=== PATIENT | female | born 1955 | race Caucasian/White ===

== ENCOUNTER 2017-12-07 12:14 | Inpatient (IN) | payer MEDICARE ==
[~2017-12-07] VITALS: Ht 152.4 cm; Wt 47.7 kg
[2017-12-07 12:16] VITALS: BP 135/97; PULSE 112; RESP 12; TEMP 98.2; O2SAT 99
[2017-12-07] MEDS ORDERED: VOLT100T (14:38)
[2017-12-07] MEDS ORDERED: BUTA1CAP PO (14:38)
[2017-12-07] MEDS ORDERED: palgic (14:38)
[2017-12-07] MEDS ORDERED: OXYC-406 PO (14:38)
[2017-12-07] MEDS ORDERED: [UNRECOGNIZED DRUG - OTHER] (14:38)
[2017-12-07] MEDS ORDERED: ROBA500T PO (14:55)
--- NOTE | 2017-12-07 14:55 | PD ---
HPI Chief Complaint: Back/ Neck Pain or Injury Time Seen by Provider: 14:34 Travel History International Travel<30 days: No Contact w/Intl Traveler<30days: No Traveled to known affect area: No History of Present Illness HPI 62-year-old female presents to the emergency Department with complaint of neck pain that is worse on the right than left with worsening 3 months. She has history of neck fusion and back surgery 30 years ago. Denies new or recent injury. Also reports chronic back pain. Says she can't take the pain anymore and came to the ER for help. Pain radiates into both of her arms causing numbness and tingling. Reports decreased range of motion at the shoulder of bilateral arms; so she can't with her arms above her head. Denies IV drug use or cancer. Denies fever. Denies encopresis, incontinence. Reports a tingling sensation in her genital area "sometimes." Reports vomiting secondary to the pain; last vomited yesterday morning. Had an MRI on October 26 and per the patient states that she has 3 herniated discs in her neck. She was told to follow up with neurosurgery which she has not done. Rates pain 10/10. Pain is constant. Describes as shocking. No known relieving factors. Takes OxyContin 40 mg 3 times a day for pain management. Primary care provider is Dr. Tapia. Pain management doctor is Dr. Choe. Allergies to penicillin, tetracycline, mycins. Denies other significant past medical history. Has no other medical complaints. No other modifying factors or associated signs and symptoms. PFSH Past Medical History ?: Not Menopausal: Yes Past Surgical History Cholecystectomy: Yes Social History Alcohol Use: No Tobacco Use: Yes (10 days) Substance Use: No Allergies-Medications (Allergen,Severity, Reaction): Coded Allergies: penicillin G (Unverified Allergy, Intermediate, Hives, 06/07/17) Sulfa (Sulfonamide Antibiotics) (Unverified Allergy, Unknown, 06/07/17) doxycycline (Unverified Allergy, Unknown, 06/07/17) minocycline (Unverified Allergy, Unknown, 06/07/17) tigecycline (Unverified Allergy, Unknown, 06/07/17) Uncoded Allergies: MYCINS (Allergy, Unknown, Rash, 07/30/03) Reported Meds & Prescriptions Reported Meds & Active Scripts Active Robaxin (Methocarbamol) 500 Mg Tab 500 Mg PO QID PRN Reported [ellival] Oxycodone ER (Oxycodone HCl) 40 Mg Tab 40 Mg PO Q8HR [palgic] DAILY Voltaren-Xr (Diclofenac Sodium) 100 Mg Tab.er.24h DAILY Fioricet (Azubobsqtk-Ganxytsecmwgw-Nscuqiij) 50-300-40 Mg Cap 2 Cap PO Q4H PRN Review of Systems Except as stated in HPI: all other systems reviewed are Neg Physical Exam Narrative GENERAL: Thin, female patient, in no acute distress; afebrile, nontoxic-appearing SKIN: Warm and dry. HEAD: Atraumatic. Normocephalic. EYES: Pupils equal and round. No scleral icterus. No injection or drainage. ENT: Mucosa pink and moist. Airway patent. NECK: Trachea midline. No lymphadenopathy. Moving freely. No midline point tenderness on palpation of the cervical spine. Reproducible tenderness to bilateral musculature of the neck; right worse than left. No obvious deformities. CARDIOVASCULAR: Regular rate and rhythm. No murmur appreciated. RESPIRATORY: No accessory muscle use. Clear to auscultation. Breath sounds equal bilaterally. GASTROINTESTINAL: Abdomen soft, non-tender, nondistended. Hepatic and splenic margins not palpable. Bowel sounds are active 4 quadrants. 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 No obvious deformities. No clubbing. No cyanosis. No edema. Ambulatory in the room with steady gait. BACK: No point tenderness on palpation of thoracic spine. No obvious deformities. MUSCULOSKELETAL: Bilateral lower extremities supple and non-tense with 2+ pedal pulses and sensory intact; with full range of motion and 5/5 strength. 2 + DTRs bilaterally. Active dorsiflexion and extension of bilateral feet. [-] straight leg raise is [-] for low back pain. Ambulatory in room with normal gait. Sitting up in bed at 90. No obvious deformities. No clubbing. No cyanosis. No edema. BACK: [-] midline point tenderness on palpation of the lumbar spine. Tenderness on palpation of [-] lumbar paraspinal/iliosacral area. No obvious deformities. NEUROLOGICAL: Awake and alert. Oriented 3. No obvious cranial nerve deficits. Motor grossly within normal limits. Normal speech. Moves all extremities. . Sensory intact. PSYCHIATRIC: Appropriate mood and affect; insight and judgment normal. Data Data Last Documented VS Vital Signs Date Time Temp Pulse Resp B/P (MAP) Pulse Ox O2 Delivery O2 Flow Rate FiO2 12/07/17 12:16 98.2 112 12 135/97 (110) 99 Orders Orders Orphenadrine Inj (Norflex Inj) (12/07/17 15:00) Complete Blood Count With Diff (12/07/17 15:45) Basic Metabolic Panel (Bmp) (12/07/17 15:45) Act Partial Throm Time (Ptt) (12/07/17 15:45) Prothrombin Time / Inr (Pt) (12/07/17 15:45) Morphine Inj (Morphine Inj) (12/07/17 15:45) Ondansetron Inj (Zofran Inj) (12/07/17 15:45) Mri C Spine W&W/O Contrast (12/07/17 ) [facility] Medical Decision Making Medical Screen Exam Complete: Yes Emergency Medical Condition: Yes Medical Record Reviewed: Yes Differential Diagnosis Chronic neck pain, cervical radiculopathy, disc herniation Narrative Course 62-year-old female with chronic neck pain and back pain with complaint of worsening of neck pain over the past 3 months. She had outpatient MRI on October 26 which showed 3 herniated disks, per the patient. She sees pain management and takes OxyContin 40 mg 3 times a day. She was told to follow up with neurosurgery and she has not done so. Denies IV drug use or cancer. Denies encopresis, incontinence, saddle anesthesias. Patient has no midline tenderness on palpation of the cervical spine. Reproducible tenderness to bilateral musculature of the neck. I discussed the patient with my attending physician, Dr. Bullock, and he agrees with the plan of care. Norflex ordered. Robaxin prescribed for home. Instructed patient to follow-up with neurosurgery. Instructed patient to follow up with primary care provider. Patient verbalizes understanding and agreement with treatment plan. Patient is medically cleared and stable for discharge. Discussed reasons to return to the emergency department. Patient agrees with treatment plan. The patients vital signs are stable and the patient is stable for outpatient follow-up and treatment. Patient discharged home, stable and in no acute distress. Diagnosis Primary Impression: Chronic neck pain Referrals: Neurosurgeon Primary Care Physician Patient Instructions: Chronic Neck Pain (DC), General Instructions Additional Instructions: Tylenol or ibuprofen as directed and as needed to reduce pain Robaxin as prescribed for muscle spasms Get adequate rest Ice and/or heating pad to affected area to reduce pain Avoid aggravating activity; increase activity as tolerated Follow-up with primary care provider Follow-up with neurosurgeon Return to the emergency department immediately with worsening symptoms Med/Other Pt SpecificInfo: Prescription(s) given Scripts Methocarbamol (Robaxin) 500 Mg Tab 500 MG PO QID Y for MUSCLE SPASM, #30 TAB 0 Refills Prov: Mariann Nicholson 12/07/17 Disposition: DISCHARGE HOME Condition: Stable Mariann Nicholson Dec 07, 2017 14:55
[2017-12-07] MEDS ORDERED: ORPHENADRINE INJ 60 MG/2 ML AMP IM ONE (15:00)
[2017-12-07] MEDS ORDERED: ONDANSETRON HCL 4 MG/2 ML VIAL IV PUSH ONE (15:45)
[2017-12-07] MEDS ORDERED: MORPHINE SULFATE 2 MG/ML INJ IV PUSH ONE (15:45)
--- NOTE | 2017-12-07 15:45 | PD.CONS ---
(Alex France MD) HPI Consult Requested By Primary Care Physician Non-Staff (Alex France MD) Service Neurosurgery Consult Requested By ED Physician Reason for Consult cervical myelopathy History of Present Illness Ms. Rios is a 62 year old female who presents to [place] ED for intractable cervical pain and extremity weakness. The patient reports she has had progressive neck pain for the past few months. She says she underwent an MRI scan of her cervical spine outpatient but she does not have results with her. She reports however for the past few days she has had severe worsening weakness of her arms and legs. This has caused difficulty mobilizing as well as performing ADLs. She reports of constipation but denies urinary or bowel incontinence. She complains pain radiating throughout her arms. She complains of headaches. She has numbness all over her arms and legs. She also has had weight loss. She denies fevers or chills. A neurosurgical evaluation was requested. (Sapphire Sinha) Review of Systems Constitutional: COMPLAINS OF: Weight loss, DENIES: Fever, Chills Eyes: DENIES: Diplopia, Vision loss, Double Vision Ears, nose, mouth, throat: DENIES: Tinnitus, Hearing loss Respiratory: DENIES: Apneas, Wheezing, Hemoptysis, Shortness of breath Cardiovascular: DENIES: Chest pain, Palpitations, Syncope Gastrointestinal: COMPLAINS OF: Constipation, DENIES: Abdominal pain, Nausea, Vomiting Genitourinary: DENIES: Urinary incontinence Musculoskeletal: COMPLAINS OF: Neck pain Neurologic: COMPLAINS OF: Abnormal gait, Headache, Localized weakness, Paresthesias, Poor Balance, DENIES: Seizures Psychiatric: DENIES: Hallucinations (Sapphire Sinha) Past Family Social History Allergies: Coded Allergies: penicillin G (Unverified Allergy, Intermediate, Hives, 06/07/17) Sulfa (Sulfonamide Antibiotics) (Unverified Allergy, Unknown, 06/07/17) doxycycline (Unverified Allergy, Unknown, 06/07/17) minocycline (Unverified Allergy, Unknown, 06/07/17) tigecycline (Unverified Allergy, Unknown, 06/07/17) Uncoded Allergies: MYCINS (Allergy, Unknown, Rash, 07/30/03) Past Medical History headaches chronic pain Past Surgical History remote lumbar fusion anterior cervical fusion Reported Medications reviewed in EMR Active Ordered Medications Current Medications Medications (Trade) Dose Ordered Sig/Suzie Route PRN Reason Start Time Stop Time Status Last Admin Dose Admin Hydromorphone HCl (Dilaudid Pf Inj) 1 mg Q4H PRN IV PUSH pain 6-10 12/07/17 16:15 UNV Lorazepam (Ativan Inj) 1 mg ONCE ONCE IV PUSH 12/07/17 16:15 12/07/17 16:16 UNV Family History reviewed, noncontributory to her current problem Social History positive for tobacco use, she denies illicit drug or etoh abuse. she lives alone, her passed a year ago (Sapphire Sinha) Physical Exam Vital Signs Vital Signs Date Time Temp Pulse Resp B/P (MAP) Pulse Ox O2 Delivery O2 Flow Rate FiO2 12/07/17 12:16 98.2 112 12 135/97 (110) 99 Physical Exam Ms. Rios is alert, awake and oriented to time, place and person. Speech is fluent. Higher cognitive functions are normal. Cranial nerve examination demonstrates the pupils to be equal, round, and reactive to light. Extra-ocular movements are intact. Facial motor and sensory function are normal and symmetrical. Gross hearing is intact, bilaterally. The uvula is midline and elevates symmetrically with the soft palate. Sternocleidomastoid and trapezius muscles have normal and symmetrical strength. Other cranial nerves are intact. Cervical spine moderate to severe decrease in range of motion in anterior flexion, extension, lateral bending, and rotation with pain. Muscle testing reveals increase tone. Muscle strength is 3 to 4-/5 deltoid, biceps, triceps, brachioradialis, wrist extension and screen roller. In the lower extremities, strength is 3 to 4-/5 in both iliopsoas, quadriceps, hamstrings, 2/ 5 plantar flexion, dorsiflexion, 0/5 extensor hallicus longus. Sensory examination is decreased throughout her upper and lower extremities. Deep tendon reflexes are 1+ and symmetrical in the biceps, triceps, and brachioradialis, bilaterally, in the upper extremities. In the lower extremities , the patellar are 3+ brisk, and Achilles are 1+, bilaterally. Plantars silent bilaterally. Hoffmanns sign is positive bilaterally. Cerebellar examination is limited due to her upper extremity weakness, grossly intact to [id number] test Lungs: clear to auscultate bilaterally Heart: regular rate, rhythm Skin: warm and dry (Alex France MD) Physical Exam Ms. Rios is alert, awake and oriented to time, place and person. Speech is fluent. Higher cognitive functions are normal. Cranial nerve examination demonstrates the pupils to be equal, round, and reactive to light. Extra-ocular movements are intact. Facial motor and sensory function are normal and symmetrical. Gross hearing is intact, bilaterally. The uvula is midline and elevates symmetrically with the soft palate. Sternocleidomastoid and trapezius muscles have normal and symmetrical strength. Other cranial nerves are intact. Cervical spine moderate to severe decrease in range of motion in anterior flexion, extension, lateral bending, and rotation with pain. Muscle testing reveals increase tone. Muscle strength is 3 to 4-/5 deltoid, biceps, triceps, brachioradialis, wrist extension and screen roller. In the lower extremities, strength is 3 to 4-/5 in both iliopsoas, quadriceps, hamstrings, 2/ 5 plantar flexion, dorsiflexion, 0/5 extensor hallicus longus. Sensory examination is decreased throughout her upper and lower extremities. Deep tendon reflexes are 1+ and symmetrical in the biceps, triceps, and brachioradialis, bilaterally, in the upper extremities. In the lower extremities , the patellar are 3+ brisk, and Achilles are 1+, bilaterally. Plantars silent bilaterally. Hoffmanns sign is positive bilaterally. Cerebellar examination is limited due to her upper extremity weakness, grossly intact to [id number] test Lungs: clear to auscultate bilaterally Heart: regular rate, rhythm Skin: warm and dry (Sapphire Sinha) Attending Statement Neuro. She has clinical signs consistet with Upper motor neuron findings. Minna pect cervical myelopathy. I have requested her outpatient MRI. Recommend MRI cervical spine ROCIO. I will defer further recommendations to completion of her MRI Pulmonary aggressive pulmonary toilette, nasotracheal suction, and breathing treatments with nebulizers. Nutrition. Oral diet Renal. monitor closely urine output, BUN and creatinine Endocrine. Monitor serial Acu checks and SSI as needed in detail ID monitor for signs of infection Protonix for stress ulcer prophylaxis Skinny hose and SCD's for DVT prophylaxis \ The exam, history, and the medical decision-making described in the above note were completed with the assistance of the mid-level provider. I reviewed and agree with the findings presented. I attest that I had a [id number] encounter with the patient on the same day, and personally performed and documented my assessment and findings in the medical record. (Alex France MD) Alex France MD Dec 07, 2017 15:45 Sapphire Sinha Dec 07, 2017 16:22
--- NOTE | 2017-12-07 15:53 | PD ---
Physical Exam Date Seen by Provider: Dec 07, 2017 Time Seen by Provider: 15:50 Narrative The patient is a 62-year-old female was initially evaluated by the mid-level provider. Please refer to initial history, physical, diagnostic evaluation, and treatment modality plan. Data Data Last Documented VS Vital Signs Date Time Temp Pulse Resp B/P (MAP) Pulse Ox O2 Delivery O2 Flow Rate FiO2 12/07/17 16:14 78 20 100 Room Air 12/07/17 12:16 98.2 Orders Orders Orphenadrine Inj (Norflex Inj) (12/07/17 15:00) Complete Blood Count With Diff (12/07/17 15:45) Basic Metabolic Panel (Bmp) (12/07/17 15:45) Act Partial Throm Time (Ptt) (12/07/17 15:45) Prothrombin Time / Inr (Pt) (12/07/17 15:45) Morphine Inj (Morphine Inj) (12/07/17 15:45) Ondansetron Inj (Zofran Inj) (12/07/17 15:45) Mri C Spine W&W/O Contrast (12/07/17 ) Hydromorphone Pf Inj (Dilaudid Pf Inj) (12/07/17 16:15) Lorazepam Inj (Ativan Inj) (12/07/17 16:15) Consult Neurosurgery (12/07/17 ) Consult Neurology (12/07/17 ) Admit Order (Ed Use Only) (12/07/17 16:45) Labs Laboratory Tests Test 12/07/17 15:54 White Blood Count 12.1 TH/MM3 Red Blood Count 3.96 MIL/MM3 Hemoglobin 13.6 GM/DL Hematocrit 37.3 % Mean Corpuscular Volume 94.4 FL Mean Corpuscular Hemoglobin 34.3 PG Mean Corpuscular Hemoglobin Concent 36.3 % Red Cell Distribution Width 14.4 % Platelet Count 379 TH/MM3 Mean Platelet Volume 6.0 FL Neutrophils (%) (Auto) 58.9 % Lymphocytes (%) (Auto) 34.4 % Monocytes (%) (Auto) 4.5 % Eosinophils (%) (Auto) 1.7 % Basophils (%) (Auto) 0.5 % Neutrophils # (Auto) 7.1 TH/MM3 Lymphocytes # (Auto) 4.2 TH/MM3 Monocytes # (Auto) 0.5 TH/MM3 Eosinophils # (Auto) 0.2 TH/MM3 Basophils # (Auto) 0.1 TH/MM3 CBC Comment AUTO DIFF Prothrombin Time 9.4 SEC Prothromb Time International Ratio 0.9 RATIO Activated Partial Thromboplast Time 23.9 SEC Blood Urea Nitrogen 7 MG/DL Creatinine 0.51 MG/DL Random Glucose 86 MG/DL Calcium Level 8.6 MG/DL Sodium Level 134 MEQ/L Potassium Level 3.9 MEQ/L Chloride Level 104 MEQ/L Carbon Dioxide Level 22.6 MEQ/L Anion Gap 7 MEQ/L Estimat Glomerular Filtration Rate 121 ML/MIN [facility] Medical Record Reviewed: Yes Supervised Visit with MICA: Yes Interpretation(s) Laboratory Tests Test 12/07/17 15:54 White Blood Count 12.1 TH/MM3 Red Blood Count 3.96 MIL/MM3 Hemoglobin 13.6 GM/DL Hematocrit 37.3 % Mean Corpuscular Volume 94.4 FL Mean Corpuscular Hemoglobin 34.3 PG Mean Corpuscular Hemoglobin Concent 36.3 % Red Cell Distribution Width 14.4 % Platelet Count 379 TH/MM3 Mean Platelet Volume 6.0 FL Neutrophils (%) (Auto) 58.9 % Lymphocytes (%) (Auto) 34.4 % Monocytes (%) (Auto) 4.5 % Eosinophils (%) (Auto) 1.7 % Basophils (%) (Auto) 0.5 % Neutrophils # (Auto) 7.1 TH/MM3 Lymphocytes # (Auto) 4.2 TH/MM3 Monocytes # (Auto) 0.5 TH/MM3 Eosinophils # (Auto) 0.2 TH/MM3 Basophils # (Auto) 0.1 TH/MM3 CBC Comment AUTO DIFF Prothrombin Time 9.4 SEC Prothromb Time International Ratio 0.9 RATIO Activated Partial Thromboplast Time 23.9 SEC Blood Urea Nitrogen 7 MG/DL Creatinine 0.51 MG/DL Random Glucose 86 MG/DL Calcium Level 8.6 MG/DL Sodium Level 134 MEQ/L Potassium Level 3.9 MEQ/L Chloride Level 104 MEQ/L Carbon Dioxide Level 22.6 MEQ/L Anion Gap 7 MEQ/L Estimat Glomerular Filtration Rate 121 ML/MIN Differential Diagnosis Differential diagnosis includes syringomyelia, cervical cord compression, cervical myelopathy, atypical MS, metastatic cancer, chronic pain. Narrative Course I, Dr. Bullock, have reviewed the advance practice practitioner's documentation and am in agreement, met with the patient face to face, made the diagnosis, and the medical decision making was done by me. *My assessment and Findings: 62-year-old female with 3 month history of neck pain. The patient's apparently over one year ago, she then developed neck pain 3 months ago. She had an outpatient MRI performed in [place] one month ago which apparently revealed 3 herniated disc. The patient was referred to a neurosurgeon, however, has not followed up with a neurosurgeon. The patient now notes 3 days of increasing weakness with inability to raise arms above her head. She now notes difficulty dressing herself and doing her activities of daily living. She notes progressing weakness of the upper extremities as well as numbness of the upper extremities. She also complains of difficulty ambulates secondary to bilateral lower extremity weakness. She does have a previous history of back surgery, however, states this is acute. She denies any acute urinary incontinence. Symptoms are moderate. Physical examination reveals limited range of motion of the upper extremity is, she is unable to abduct her arms completely to 90 or extend them to 90, she is unable to raise her arms above her legs. 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 Positive right radial pulses. Lower extremities revealed diminished strength with flexion of the hips and extension of the knees , brisk DTRs bilateral 3+ and symmetric. Triceps reflexes bilaterally were 2+. No clonus noted. I discussed the patient on-call neurosurgeon, Dr. France, at 3:45 PM who recommends MRI with and without contrast and admission to the medical service. Therefore MRI of the cervical spine with and without contrast was obtained. The patient was evaluated by the neurosurgeon in the emergency department, recommends admission to the medical service, MRIs are pending for probable cervical myelopathy. Physician Communication Physician Communication The on-call medical service was paged for admission. I discussed the patient with Dr. Lee who agrees with admission. Diagnosis Primary Impression: Cervical myelopathy Admitting Information Admitting Physician Requests: Admit Referrals: Neurosurgeon Primary Care Physician Departure Forms: Tests/Procedures Scripts Methocarbamol (Robaxin) 500 Mg Tab 500 MG PO QID Y for MUSCLE SPASM, #30 TAB 0 Refills Prov: Mariann Nicholson PLATE MILL MILL HAND 12/07/17 Condition: Stable Uri Bullock MD Dec 07, 2017 15:53
[2017-12-07 16:13] LABS: AUTOMATED NEUTROPHIL # 7.1 TH/MM3 (1.8-7.7); BASOPHIL # 0.1 TH/MM3 (0-0.2); BASOPHIL % 0.5 % (0.0-2.0); EOSINOPHIL # 0.2 TH/MM3 (0-0.4); EOSINOPHIL % 1.7 % (0.0-4.0); HEMATOCRIT 37.3 % (35.0-46.0); HEMOGLOBIN 13.6 GM/DL (11.6-15.3); LYMPH % 34.4 % (9.0-44.0); LYMPHOCYTE # 4.2 TH/MM3 (1.0-4.8); MEAN CELL VOLUME 94.4 FL (80.0-100.0); MEAN CORPUSCULAR HEMOGLOBIN 34.3 PG (27.0-34.0); MONO % 4.5 % (0.0-8.0); MONOCYTE # 0.5 TH/MM3 (0-0.9); NEUT % 58.9 % (16.0-70.0); PLATELET COUNT 379 TH/MM3 (150-450); RED BLOOD COUNT 3.96 MIL/MM3 (4.00-5.30); RED CELL DISTRIBUTION WIDTH 14.4 % (11.6-17.2); WHITE BLOOD COUNT 12.1 TH/MM3 (4.0-11.0)
[2017-12-07 16:14] VITALS: PULSE 78; RESP 20; O2SAT 100
[2017-12-07 16:15] LABS: MEAN CORPUSCULAR HGB CONC 36.3 % (32.0-36.0)
[2017-12-07] MEDS ORDERED: LORazepam 2 MG/ML VIAL IV PUSH ONE (16:15)
[2017-12-07] MEDS ORDERED: HYDROmorphone HCL PF 2 MG/ML VIAL IV PUSH PRN (16:15)
[2017-12-07 16:23] LABS: INTERNATIONAL NORMALIZED RATIO 0.9 RATIO; PROTHROMBIN TIME - PATIENT 9.4 SEC (9.8-11.6)
[2017-12-07 16:36] LABS: BICARBONATE 22.6 MEQ/L (21.0-32.0); CALCIUM 8.6 MG/DL (8.5-10.1); CREATININE 0.51 MG/DL (0.50-1.00)
[2017-12-07] MEDS ORDERED: GADODIAMIDE PF 287 MG/ML 10 ML VIAL (for RAD MRI) IVCONTRAST ONE (17:39)
--- NOTE | 2017-12-07 18:11 | RADRPT ---
EXAM DATE/TIME: 12/07/2017 17:17 [facility] COMPARISON: No previous studies available for comparison. INDICATIONS : Bilateral upper extremity weakness. CONTRAST: 9 cc Omniscan (gadodiamide) IV MEDICAL HISTORY : None. SURGICAL HISTORY : Fusion, lumbar. Discectomy, cervical. ENCOUNTER: Initial ACUITY: 3 day PAIN SCORE: 5/10 LOCATION: neck. TECHNIQUE: Multiplanar, multisequence MRI examination of the cervical spine was performed. FINDINGS: There is evidence for prior fusion at C5-C6 appears complete. There is marrow edema with slight enhan cement on the postcontrast portion involving C3 and C4 vertebrae most likely related to significant d egenerative change. C2-C3: There is no evidence for any significant compromise to the thecal sac, or the exiting nerve roots. N o appreciable thecal sac stenosis is seen. The neural foramina and lateral recess appear patent bila terally. and C3-C4: Moderate overall thecal sac stenosis is seen due to bulging disc and hypertrophic changes. There is s light neural foramina compromise on the left due to asymmetrical bulging disc and hypertrophic change s. Moderate degenerative changes are seen within the disc space and facets. C4-C5: Moderate overall thecal sac stenosis is seen due to bulging disc and hypertrophic changes. Moderate d egenerative changes are seen within the disc space and facets. There is moderate neural foramina comp romise bilaterally due to bulging disc and hypertrophic changes. There is slight edema within the spi nal cord from C3 to mid body of C4 may be related to ischemic changes from stenosis. C5-C6: The thecal sac has a normal configuration. There is no evidence of disc herniation or spinal canal stenosis. The neural foramina are patent bilaterally. C6-C7: Moderate overall thecal sac stenosis is seen due to bulging disc and hypertrophic changes. There is s ignificant neural foramina compromise bilaterally due to bulging disc and hypertrophic changes.Signif icant degenerative changes are seen within the disc space and facets. C7-T1: The thecal sac has a normal configuration. There is no evidence of disc herniation or spinal canal stenosis. The neural foramina are patent bilaterally. CONCLUSION: Moderate to severe thecal sac stenosis C3-4, C4-5 and C6-7 in addition to neural foramina compromise left C3-C4, bilateral C4-5 bilateral C6-7. There is abnormal signal within the spinal cord AP centere d at C3-4 level may represent ischemic changes related to significant stenosis. Rosanna Ricci MD on December 07, 2017 at 18:01 Board Certified Radiologist. This report was verified electronically.
[2017-12-07 18:20] VITALS: BP 120/60; PULSE 74; RESP 20; O2SAT 100
--- NOTE | 2017-12-07 18:48 | PD ---
Data Data Last Documented VS Vital Signs Date Time Temp Pulse Resp B/P (MAP) Pulse Ox O2 Delivery O2 Flow Rate FiO2 12/07/17 16:14 78 20 100 Room Air 12/07/17 12:16 98.2 Orders Orders Orphenadrine Inj (Norflex Inj) (12/07/17 15:00) Complete Blood Count With Diff (12/07/17 15:45) Basic Metabolic Panel (Bmp) (12/07/17 15:45) Act Partial Throm Time (Ptt) (12/07/17 15:45) Prothrombin Time / Inr (Pt) (12/07/17 15:45) Morphine Inj (Morphine Inj) (12/07/17 15:45) Ondansetron Inj (Zofran Inj) (12/07/17 15:45) Mri C Spine W&W/O Contrast (12/07/17 ) Hydromorphone Pf Inj (Dilaudid Pf Inj) (12/07/17 16:15) Lorazepam Inj (Ativan Inj) (12/07/17 16:15) Consult Neurosurgery (12/07/17 ) Consult Neurology (12/07/17 ) Admit Order (Ed Use Only) (12/07/17 16:45) Labs Laboratory Tests Test 12/07/17 15:54 White Blood Count 12.1 TH/MM3 Red Blood Count 3.96 MIL/MM3 Hemoglobin 13.6 GM/DL Hematocrit 37.3 % Mean Corpuscular Volume 94.4 FL Mean Corpuscular Hemoglobin 34.3 PG Mean Corpuscular Hemoglobin Concent 36.3 % Red Cell Distribution Width 14.4 % Platelet Count 379 TH/MM3 Mean Platelet Volume 6.0 FL Neutrophils (%) (Auto) 58.9 % Lymphocytes (%) (Auto) 34.4 % Monocytes (%) (Auto) 4.5 % Eosinophils (%) (Auto) 1.7 % Basophils (%) (Auto) 0.5 % Neutrophils # (Auto) 7.1 TH/MM3 Lymphocytes # (Auto) 4.2 TH/MM3 Monocytes # (Auto) 0.5 TH/MM3 Eosinophils # (Auto) 0.2 TH/MM3 Basophils # (Auto) 0.1 TH/MM3 CBC Comment AUTO DIFF Differential Comment AUTO DIFF CONFIRMED Prothrombin Time 9.4 SEC Prothromb Time International Ratio 0.9 RATIO Activated Partial Thromboplast Time 23.9 SEC Blood Urea Nitrogen 7 MG/DL Creatinine 0.51 MG/DL Random Glucose 86 MG/DL Calcium Level 8.6 MG/DL Sodium Level 134 MEQ/L Potassium Level 3.9 MEQ/L Chloride Level 104 MEQ/L Carbon Dioxide Level 22.6 MEQ/L Anion Gap 7 MEQ/L Estimat Glomerular Filtration Rate 121 ML/MIN MDM Supervised Visit with MICA: No Narrative Course At 615 I reviewed the patient's MRI results per Dr. Bullock's request that she is still in the emergency department: Cervical Spine MRI 12/07/17 0000 Signed Impressions: Service Date/Time: Thursday, December 07, 2017 17:17 - CONCLUSION: Moderate to severe thecal sac stenosis C3-4, C4-5 and C6-7 in addition to neural foramina compromise left C3-C4, bilateral C4-5 bilateral C6-7. There is abnormal signal within the spinal cord AP centered at C3-4 level may represent ischemic changes related to significant stenosis. Rosanna Ricci MD Immediately page Dr. France who is already seen and examined the patient, he returned a page 6:45 stating that these changes do not represent an emergent indication for surgery as her symptoms are chronic. Diagnosis Primary Impression: Cervical myelopathy Referrals: Neurosurgeon Primary Care Physician Departure Forms: Tests/Procedures Additional Instruction: Tylenol or ibuprofen as directed and as needed to reduce pain Robaxin as prescribed for muscle spasms Get adequate rest Ice and/or heating pad to affected area to reduce pain Avoid aggravating activity; increase activity as tolerated Follow-up with primary care provider Follow-up with neurosurgeon Return to the emergency department immediately with worsening symptoms Scripts Methocarbamol (Robaxin) 500 Mg Tab 500 MG PO QID Y for MUSCLE SPASM, #30 TAB 0 Refills Prov: Mariann Nicholson GLASS GRINDER 12/07/17 Condition: Stable Rafael Levy MD Dec 07, 2017 18:47
--- NOTE | 2017-12-07 18:53 | HHI.HP ---
[facility] Unknown Admission Diagnosis cervical myelopathy with upper motor neuron signs Diagnoses: Chief Complaint: Neck pain, severe weakness bilateral arms Travel History International Travel<30 Days: No Contact w/Intl Traveler <30 Da: No Traveled to Known Affected Are: No History of Present Illness Written by Vivi Maciel, acting as scribe for Dr. Lee on 12/07/17 at 18:39. Patient is a 62-year-old female with primary medical history of neck fusion, lower back fusion with rods, chronic pain who came in the hospital for increasing neck and back pain. Patient reports that she has been having an ongoing cervical pain that extends throughout bilateral upper extremity with weakness for the past several days. She came into the hospital because he was worsening in pain and she is unable to hold any utensils, hairbrush or even to brush her teeth without crying in pain. Reports she's been dropping stuff on her foot she is unable to hold it and has broken to toes.. Complaints of numbness and tingling, sharp achy pain, rated 8/10, radiating to shoulders and head aggravated with movement increasing pain 10 over 10, unrelieved by her current regimen of medication. She also complains of difficulty with ambulation. Otherwise, denies chest pain, palpitations, fevers, chills, nausea , vomiting, diarrhea, constipation. Denies any shortness of breath or dyspnea. Review of Systems Except as stated in HPI: all other systems reviewed are Neg Past Family Social History Past Medical History Chronic pain Leukoma Cataracts Past Surgical History Cholecystectomy Lumbar fusion with plates and rods done in [facility] in 1987 Neck fusion also done [facility] in 1987 Reported Medications Reported Meds & Active Scripts Active Robaxin (Methocarbamol) 500 Mg Tab 500 Mg PO QID PRN Reported [ellival] Oxycodone ER (Oxycodone HCl) 40 Mg Tab 40 Mg PO Q8HR [palgic] DAILY Voltaren-Xr (Diclofenac Sodium) 100 Mg Tab.er.24h DAILY Fioricet (Ypdtczyfef-Kyyolafnjwwha-Fivwdqgr) 50-300-40 Mg Cap 2 Cap PO Q4H PRN Allergies: Coded Allergies: penicillin G (Unverified Allergy, Intermediate, Hives, 06/07/17) Sulfa (Sulfonamide Antibiotics) (Unverified Allergy, Unknown, 06/07/17) doxycycline (Unverified Allergy, Unknown, 06/07/17) minocycline (Unverified Allergy, Unknown, 06/07/17) tigecycline (Unverified Allergy, Unknown, 06/07/17) Uncoded Allergies: MYCINS (Allergy, Unknown, Rash, 07/30/03) Active Ordered Medications Current Medications Medications (Trade) Dose Ordered Sig/Suzie Route Start Time Stop Time Status Last Admin (Dilaudid Pf Inj) 1 mg Q4H PRN IV PUSH 12/07/17 16:15 12/07/17 17:09 Family History Mother had dementia, heart disease Father had throat cancer Social History Denies alcohol use Current tobacco use 10 cigarettes per day 30 years Denies drug use Physical Exam Vital Signs Vital Signs Date Time Temp Pulse Resp B/P (MAP) Pulse Ox O2 Delivery O2 Flow Rate FiO2 12/07/17 18:20 74 20 120/60 (80) 100 12/07/17 16:14 78 20 100 Room Air 12/07/17 12:16 98.2 112 12 135/97 (110) 99 Physical Exam GENERAL: This is athin appearing, well-developed patient, in no apparent distress. SKIN: Cool and dry. HEAD: Normocephalic. EYES: Pupils equal round and reactive. Extraocular motions intact. No scleral icterus. No injection or drainage. ENT: Nose without bleeding. Throat without erythema. Uvula midline. Airway patent. NECK: Trachea midline. CARDIOVASCULAR: Regular rate and rhythm without murmurs, gallops, or rubs. RESPIRATORY: Clear to auscultation. Breath sounds equal bilaterally. No wheezes , rales, or rhonchi. GASTROINTESTINAL: Abdomen soft, non-tender, nondistended. Bowel sounds hypoactive. MUSCULOSKELETAL: Extremities without clubbing, cyanosis, or edema. NEUROLOGICAL: Awake and alert. Cranial nerves II through XII intact. BUE limited ROM, difficult the with abduction. RUE weaker than left. RLE weaker plantar and dorsiflexion than left. Normal speech. Laboratory Laboratory Tests Test 12/07/17 15:54 White Blood Count 12.1 Red Blood Count 3.96 Hemoglobin 13.6 Hematocrit 37.3 Mean Corpuscular Volume 94.4 Mean Corpuscular Hemoglobin 34.3 Mean Corpuscular Hemoglobin Concent 36.3 Red Cell Distribution Width 14.4 Platelet Count 379 Mean Platelet Volume 6.0 Neutrophils (%) (Auto) 58.9 Lymphocytes (%) (Auto) 34.4 Monocytes (%) (Auto) 4.5 Eosinophils (%) (Auto) 1.7 Basophils (%) (Auto) 0.5 Neutrophils # (Auto) 7.1 Lymphocytes # (Auto) 4.2 Monocytes # (Auto) 0.5 Eosinophils # (Auto) 0.2 Basophils # (Auto) 0.1 CBC Comment AUTO DIFF Differential Comment AUTO DIFF CONFIRMED Prothrombin Time 9.4 Prothromb Time International Ratio 0.9 Activated Partial Thromboplast Time 23.9 Blood Urea Nitrogen 7 Creatinine 0.51 Random Glucose 86 Calcium Level 8.6 Sodium Level 134 Potassium Level 3.9 Chloride Level 104 Carbon Dioxide Level 22.6 Anion Gap 7 Estimat Glomerular Filtration Rate 121 Result Diagram: 12/07/17 1554 12/07/17 1554 Imaging Last Impressions Cervical Spine MRI 12/07/17 0000 Signed Impressions: Service Date/Time: Thursday, December 07, 2017 17:17 - CONCLUSION: Moderate to severe thecal sac stenosis C3-4, C4-5 and C6-7 in addition to neural foramina compromise left C3-C4, bilateral C4-5 bilateral C6-7. There is abnormal signal within the spinal cord AP centered at C3-4 level may represent ischemic changes related to significant stenosis. Rosanna Ricci MD Caprini VTE Risk Assessment Caprini VTE Risk Assessment: Mod/High Risk (score >= 2) Caprini Risk Assessment Model Point Value = 1 Point Value = 2 Point Value = 3 Point Value = 5 Age 41-60 Minor surgery BMI > 25 kg/m2 Swollen legs Varicose veins or History of unexplained or recurrent spontaneous Oral contraceptives or hormone replacement Sepsis (< 1 month) Serious lung disease, including pneumonia (< 1 month) Abnormal pulmonary function Acute myocardial infarction Congestive heart failure (< 1 month) History of inflammatory bowel disease Medical patient at bed rest Age 61-74 Arthroscopic surgery Major open surgery (> 45 min) Laparoscopic surgery (> 45 min) Malignancy Confined to bed (> 72 hours) Immobilizing plaster cast Central venous access Age >= 75 History of VTE Family history of VTE Factor V Leiden Prothrombin [id number] Lupus anticoagulant Anticardiolipin antibodies Elevated serum homocysteine Heparin-induced thrombocytopenia Other congenital or acquired thrombophilia Stroke (< 1 month) Elective arthroplasty Hip, pelvis, or leg fracture Acute spinal cord injury (< 1 month) Prophylaxis Regimen Total Risk Factor Score Risk Level Prophylaxis Regimen 0-1 Low Early ambulation 2 Moderate Order ONE of the following: *Sequential Compression Device (SCD) *Heparin 5000 units SQ BID 3-4 Higher Order ONE of the following medications: *Heparin 5000 units SQ TID *Enoxaparin/Lovenox 40 mg SQ daily (WT < 150 kg, CrCl > 30 mL/min) *Enoxaparin/Lovenox 30 mg SQ daily (WT < 150 kg, CrCl > 10-29 mL/min) *Enoxaparin/Lovenox 30 mg SQ BID (WT < 150 kg, CrCl > 30 mL/min) AND/OR *Sequential Compression Device (SCD) 5 or more Highest Order ONE of the following medications: *Heparin 5000 units SQ TID (Preferred with Epidurals) *Enoxaparin/Lovenox 40 mg SQ daily (WT < 150 kg, CrCl > 30 mL/min) *Enoxaparin/Lovenox 30 mg SQ daily (WT < 150 kg, CrCl > 10-29 mL/min) *Enoxaparin/Lovenox 30 mg SQ BID (WT < 150 kg, CrCl > 30 mL/min) AND *Sequential Compression Device (SCD) Assessment and Plan Problem List: (1) Cervical myelopathy ICD Code: G95.9 - Disease of spinal cord, unspecified Status: Acute (2) Chronic neck pain ICD Code: M54.2 - Cervicalgia; G89.29 - Other chronic pain Status: Acute Assessment and Plan Patient is a 62-year-old female with primary medical history of neck fusion, lower back fusion with rods, chronic pain who came in the hospital for increasing neck and back pain. Cervical myelopathy, Acute on chronic - worsening cervical pain - Neurosurgery following. - MRI Moderate to severe thecal sac stenosis C3-4, C4-5 and C6-7 in addition to neural foramina compromise left C3-C4, bilateral C4-5 bilateral C6-7. There is abnormal signal within the spinal cord AP centered at C3-4 level may represent ischemic changes related to significant stenosis. - Pain management IV hydromorphone for breakthrough pain, restrat home medication Robaxin and Oxycodone - PT/OT eval and treat DVT prop SCD for now Code Status Full Code Discussed Condition With Patient, Ahmet Rodriguez, Nursing, ED Attending Physician Certification 2 Midnight Certification Type: Admission for Inpatient Services Order for Inpatient Services The services are ordered in accordance with Medicare regulations or non- Medicare payer requirements, as applicable. In the case of services not specified as inpatient-only, they are appropriately provided as inpatient services in accordance with the 2-midnight benchmark. Estimated LOS (days): 2 days is the estimated time the patient will need to remain in the hospital, assuming treatment plan goals are met and no additional complications. Post-Hospital Plan: Not yet determined Vivi Brandon Dec 07, 2017 18:53 Rm Lee MD Dec 07, 2017 22:31
[2017-12-07] MEDS ORDERED: ONDANSETRON HCL 4 MG/2 ML VIAL IVP PRN (19:00)
[2017-12-07] MEDS ORDERED: ACETAMINOPHEN 325 MG TAB PO PRN (19:00)
[2017-12-07] MEDS ORDERED: LACTULOSE SYRUP 20 GM/30 ML CUP PO PRN (19:00)
[2017-12-07] MEDS ORDERED: MAGNESIUM HYDROXIDE SUSP 30 ML CUP PO PRN (19:00)
[2017-12-07] MEDS ORDERED: BISACODYL 10 MG SUPP RECTAL PRN (19:00)
[2017-12-07] MEDS ORDERED: SODIUM CHLORIDE 0.9% FLUSH 10 ML FLUSH IV FLUSH PRN (19:00)
[2017-12-07] MEDS ORDERED: NALOXONE HCL 0.4 MG/ML AMP IV PUSH PRN (19:00)
[2017-12-07] MEDS ORDERED: SENNOSIDES 8.6 MG TAB PO PRN (19:00)
[2017-12-07 21:00] VITALS: BP 122/65; PULSE 65; RESP 18; TEMP 97.9; O2SAT 100
[2017-12-07] MEDS: DOCUSATE SODIUM 50 MG/SENNA 8.6 MG TAB PO SCH (21:18)
[2017-12-07] MEDS: SODIUM CHLORIDE 0.9% FLUSH 10 ML FLUSH IV FLUSH SCH (21:18)
[2017-12-07] MEDS: HYDROmorphone HCL PF 2 MG/ML VIAL IV PUSH PRN (21:19)
[2017-12-07] MEDS ORDERED: AMIT150T PO (21:30)
[2017-12-07] MEDS: AMITRIPTYLINE HCL 100 MG TAB PO PRN (22:32)
[2017-12-07] MEDS: oxyCODONE HCL 40 MG CONTROLLED RELEASE TAB PO SCH (22:33)
[2017-12-08] VITALS: BP 135/69; PULSE 72; RESP 18; TEMP 97.2; O2SAT 98
[2017-12-08] MEDS: HYDROmorphone HCL PF 2 MG/ML VIAL IV PUSH PRN ×5 (02:11→20:21)
[2017-12-08 04:00] VITALS: BP 114/63; PULSE 69; RESP 19; TEMP 97.6; O2SAT 97
[2017-12-08] MEDS ORDERED: VANCOMYCIN INJ 1,000 MG in SODIUM CHLOR 0.9% 250 ML INJ 250 ML IV SCH (06:00)
[2017-12-08] MEDS: oxyCODONE HCL 40 MG CONTROLLED RELEASE TAB PO SCH ×3 (06:40→20:20)
[2017-12-08 08:13] LABS: BASOPHIL # 0.1 TH/MM3 (0-0.2); BASOPHIL % 0.7 % (0.0-2.0); EOSINOPHIL # 0.2 TH/MM3 (0-0.4); EOSINOPHIL % 2.5 % (0.0-4.0); HEMATOCRIT 37.9 % (35.0-46.0); LYMPH % 30.8 % (9.0-44.0); LYMPHOCYTE # 2.6 TH/MM3 (1.0-4.8); MEAN CELL VOLUME 94.2 FL (80.0-100.0); MEAN CORPUSCULAR HEMOGLOBIN 32.2 PG (27.0-34.0); MEAN CORPUSCULAR HGB CONC 34.2 % (32.0-36.0); MONO % 6.6 % (0.0-8.0); MONOCYTE # 0.6 TH/MM3 (0-0.9); NEUT % 59.4 % (16.0-70.0); PLATELET COUNT 379 TH/MM3 (150-450); RED BLOOD COUNT 4.02 MIL/MM3 (4.00-5.30); RED CELL DISTRIBUTION WIDTH 14.3 % (11.6-17.2); WHITE BLOOD COUNT 8.4 TH/MM3 (4.0-11.0)
[2017-12-08] MEDS ORDERED: DEXAMETHASONE SOD PHOS 20 MG/5 ML VIAL IV PUSH ONE (08:15)
[2017-12-08 08:41] LABS: ALBUMIN 3.3 GM/DL (3.4-5.0); ALT (GPT) 34 U/L (10-53); AST (GOT) 20 U/L (15-37); BICARBONATE 27.7 MEQ/L (21.0-32.0); BLOOD UREA NITROGEN 6 MG/DL (7-18); CALCIUM 8.7 MG/DL (8.5-10.1); CHLORIDE 103 MEQ/L (98-107); GLOMERULAR FILTRATION RATE 124 ML/MIN (>89); GLUCOSE,RANDOM 76 MG/DL (74-106); SODIUM (NA) 137 MEQ/L (136-145)
[2017-12-08 08:44] LABS: ALKALINE PHOSPHATASE 89 U/L (45-117); TOTAL BILIRUBIN ADULT 0.3 MG/DL (0.2-1.0); TOTAL PROTEIN 6.4 GM/DL (6.4-8.2)
[2017-12-08] MEDS: DOCUSATE SODIUM 50 MG/SENNA 8.6 MG TAB PO SCH ×2 (08:50→20:19)
[2017-12-08] MEDS: METHOCARBAMOL 500 MG TAB PO PRN (08:50)
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
[2017-12-08] MEDS: PANTOPRAZOLE SOD 40 MG DELAYED RELEASE TAB PO SCH (09:00)
--- NOTE | 2017-12-08 09:05 | HHI.PR ---
Subjective Remarks Follow up for cervical myelopathy. Patient is currently doing well. No fever, chills. Tolerating diet well. Objective Vitals Vital Signs Date Time Temp Pulse Resp B/P (MAP) Pulse Ox O2 Delivery O2 Flow Rate FiO2 12/08/17 04:00 97.6 69 19 114/63 (80) 97 12/08/17 00:00 97.2 72 18 135/69 (91) 98 12/07/17 21:00 97.9 65 18 122/65 (84) 100 12/07/17 20:34 12/07/17 18:20 74 20 120/60 (80) 100 12/07/17 16:14 78 20 100 Room Air 12/07/17 12:16 98.2 112 12 135/97 (110) 99 I/O 12/07/17 12/07/17 12/07/17 12/08/17 12/08/17 12/08/17 07:00 15:00 23:00 07:00 15:00 23:00 Intake Total 240 ml Balance 240 ml Intake Oral 240 ml # Voids 1 Result Diagram: 12/08/17 0715 12/08/17 0715 Imaging Last Impressions Cervical Spine MRI 12/07/17 0000 Signed Impressions: Service Date/Time: Thursday, December 07, 2017 17:17 - CONCLUSION: Moderate to severe thecal sac stenosis C3-4, C4-5 and C6-7 in addition to neural foramina compromise left C3-C4, bilateral C4-5 bilateral C6-7. There is abnormal signal within the spinal cord AP centered at C3-4 level may represent ischemic changes related to significant stenosis. Rosanna Ricci MD Objective Remarks GENERAL: Alert, Oriented x 3, NAD. SKIN: Warm and dry. HEAD: Normocephalic. EYES: No scleral icterus. No injection or drainage. NECK: Supple, trachea midline. No JVD or lymphadenopathy. CARDIOVASCULAR: Regular rate and rhythm without murmurs, gallops, or rubs. RESPIRATORY: Poor air entry. No appreciable wheezing. No accessory muscle use. GASTROINTESTINAL: Abdomen soft, non-tender, nondistended. MUSCULOSKELETAL: No cyanosis, or edema. BACK: Nontender without obvious deformity. No CVA tenderness. Procedures None. A/P Problem List: (1) Cervical myelopathy ICD Code: G95.9 - Disease of spinal cord, unspecified Status: Acute (2) Chronic neck pain ICD Code: M54.2 - Cervicalgia; G89.29 - Other chronic pain Status: Acute Assessment and Plan Patient is a 62-year-old female with primary medical history of neck fusion, lower back fusion with rods, chronic pain who came in the hospital for increasing neck and back pain. Cervical myelopathy, Acute on chronic - worsening cervical pain - MRI shows cervical spinal stenosis. - Pain management IV hydromorphone for breakthrough pain, restart home medication Robaxin and Oxycodone - PT/OT eval and treat - Neurology and Neurosurgery evaluated patient. MRI brain and Carotid US pending. - Likely surgical intervention tomorrow per Dr. France. - Continue Dexamethasone 4mg IV Q6hrs. Full code. SCDs. Discussed with Neurosurgeon Dr. France. Lauren Butts DO Dec 08, 2017 9:05 am
[2017-12-08 09:07] VITALS: BP 142/56; PULSE 76; RESP 20; TEMP 98.1; O2SAT 96
[2017-12-08] MEDS ORDERED: LORazepam 2 MG/ML VIAL IV PUSH ONE (09:45)
--- NOTE | 2017-12-08 10:34 | RADRPT ---
EXAM DATE/TIME: 12/08/2017 09:50 [facility] COMPARISON: No previous studies available for comparison. INDICATIONS : Cerebrovascular accident. MEDICAL HISTORY : Herniated disks. Cerebrovascular accident. SURGICAL HISTORY : Cholecystectomy. Back fusion. ENCOUNTER: Initial ACUITY: 1 day PAIN SCORE: 2/10 LOCATION: Bilateral neck PEAK SYSTOLIC VELOCITIES (cm/sec): ICA/CCA RATIO: Right: 1.1 Left: 1.1 ICA: Right: 117.4 Left: 164.6 CCA: Right: 109.5 Left: 145.9 ECA: Right: 111.5 Left: 203.7 VERTEBRAL: Right: 127.2 antegrade Left: 107.3 retrograde Elevated flow velocities and ICA/CCA ratios have been found to correlate with increased degrees of vessel stenosis, calculated as percentage of diameter relative to a normal segment of distal ICA/CCA FINDINGS: RIGHT CAROTID: No significant stenosis is visualized. The waveforms are within normal limits. LEFT CAROTID: No significant stenosis is visualized. The waveforms are within normal limits. VERTEBRAL ARTERIES: Antegrade flow is seen in both vertebral arteries. MISCELLANEOUS: None. CONCLUSION: No evidence of flow-limiting carotid stenosis. Retrograde flow in the left vertebral artery likely indicative of left subclavian artery stenosis or occlusion. Further evaluation with CTA examination of the arch and carotids with attention to the sub clavian arteries would be suggested. Ruslan See MD on December 08, 2017 at 10:27 Board Certified Radiologist. This report was verified electronically.
--- NOTE | 2017-12-08 10:52 | RADRPT ---
EXAM DATE/TIME: 12/08/2017 10:42 [facility] COMPARISON: No previous studies available for comparison. INDICATIONS : Neck pain with no known injury. MEDICAL HISTORY : None. SURGICAL HISTORY : Fusion, cervical. ENCOUNTER: Initial ACUITY: 4 - 6 months PAIN SCORE: 10/10 LOCATION: Bilateral Neck FINDINGS: Previous C5-6 fusion which appears solid. Prominent degenerative changes elsewhere in the spine inclu ding significant disc space narrowing and prominent endplate osteophytes at the adjacent levels. No d efinite evidence of fracture or destructive change. No abnormal prevertebral swelling. No abnormal mo tion in flexion or extension. CONCLUSION: Previous fusion. Prominent degenerative changes. No evidence of instability Ruslan See MD on December 08, 2017 at 10:49 Board Certified Radiologist. This report was verified electronically.
--- NOTE | 2017-12-08 11:45 | HHI.NSPN ---
Note Status Status: Progress Note Interval History Diagnosis cervical spinal stenosis Interval History Ms. Rios is a 62 year old female who presents to [facility] for intractable cervical pain and extremity weakness. The patient reports she has had progressive neck pain for the past few months. She says she underwent an MRI scan of her cervical spine outpatient but she does not have results with her. She reports however for the past few days she has had severe worsening weakness of her arms and legs. This has caused difficulty mobilizing as well as performing ADLs. She reports of constipation but denies urinary or bowel incontinence. She complains pain radiating throughout her arms. She complains of headaches. She has numbness all over her arms and legs. She also has had weight loss. She denies fevers or chills. A neurosurgical evaluation was requested. 12/08. She remains with generalized weakness and neck pain. MRI cervical spine was done,. She has been evaluated by a neurologist \ Labs, Micro, & Vital Signs Results Date Time Temp Pulse Resp B/P (MAP) Pulse Ox O2 Delivery O2 Flow Rate FiO2 12/08/17 09:07 98.1 76 20 142/56 (84) 96 12/08/17 04:00 97.6 69 19 114/63 (80) 97 12/08/17 00:00 97.2 72 18 135/69 (91) 98 12/07/17 21:00 97.9 65 18 122/65 (84) 100 12/07/17 20:34 12/07/17 18:20 74 20 120/60 (80) 100 12/07/17 16:14 78 20 100 Room Air 12/07/17 12:16 98.2 112 12 135/97 (110) 99 Constitutional Vital Signs Date Time Temp Pulse Resp B/P (MAP) Pulse Ox O2 Delivery O2 Flow Rate FiO2 12/08/17 09:07 98.1 76 20 142/56 (84) 96 12/08/17 04:00 97.6 69 19 114/63 (80) 97 12/08/17 00:00 97.2 72 18 135/69 (91) 98 12/07/17 21:00 97.9 65 18 122/65 (84) 100 12/07/17 20:34 12/07/17 18:20 74 20 120/60 (80) 100 12/07/17 16:14 78 20 100 Room Air 12/07/17 12:16 98.2 112 12 135/97 (110) 99 Review of Systems Constitutional: COMPLAINS OF: Weight loss, DENIES: Fever, Chills Eyes: DENIES: Diplopia, Vision loss, Double Vision Ears, nose, mouth, throat: DENIES: Tinnitus, Hearing loss Respiratory: DENIES: Apneas, Wheezing, Hemoptysis, Shortness of breath Cardiovascular: DENIES: Chest pain, Palpitations, Syncope Gastrointestinal: COMPLAINS OF: Constipation, DENIES: Abdominal pain, Nausea, Vomiting Genitourinary: DENIES: Urinary incontinence Musculoskeletal: COMPLAINS OF: Neck pain Neurologic: COMPLAINS OF: Abnormal gait, Headache, Localized weakness, Paresthesias, Poor Balance, DENIES: Seizures Psychiatric: DENIES: Hallucinations (Sapphire Sinha) Physical Exam Ms. Rios is alert, awake and oriented to time, place and person. Speech is fluent. Higher cognitive functions are normal. Cranial nerve examination demonstrates the pupils to be equal, round, and reactive to light. Extra-ocular movements are intact. Facial motor and sensory function are normal and symmetrical. Gross hearing is intact, bilaterally. The uvula is midline and elevates symmetrically with the soft palate. Sternocleidomastoid and trapezius muscles have normal and symmetrical strength. Other cranial nerves are intact. Cervical spine moderate to severe decrease in range of motion in anterior flexion, extension, lateral bending, and rotation with pain. Muscle testing reveals increase tone. Muscle strength is 3 to 4-/5 deltoid, biceps, triceps, brachioradialis, wrist extension and bakery deliverer. In the lower extremities, strength is 3 to 4-/5 in both iliopsoas, quadriceps, hamstrings, 2/ 5 plantar flexion, dorsiflexion, 0/5 extensor hallicus longus. Sensory examination is decreased throughout her upper and lower extremities. Deep tendon reflexes are 1+ and symmetrical in the biceps, triceps, and brachioradialis, bilaterally, in the upper extremities. In the lower extremities , the patellar are 3+ brisk, and Achilles are 1+, bilaterally. Plantars silent bilaterally. Hoffmanns sign is positive bilaterally. Cerebellar examination is limited due to her upper extremity weakness, grossly intact to [id number] test Lungs: clear to auscultate bilaterally Heart: regular rate, rhythm Skin: warm and dry Medications Current Medications Current Medications Orphenadrine Citrate (Norflex Inj) 60 mg ONCE ONCE IM Last administered on 15:22; Start 12/07/17 at 15:00; Stop 12/07/17 at 15:06; Status DC Morphine Sulfate (Morphine Inj) 2 mg ONCE ONCE IV PUSH Last administered on at 16:00; Start 12/07/17 at 15:45; Stop 12/07/17 at 15:48; Status DC Ondansetron HCl (Zofran Inj) 4 mg ONCE ONCE IV PUSH Last administered on at 16:01; Start 12/07/17 at 15:45; Stop 12/07/17 at 15:48; Status DC Hydromorphone HCl (Dilaudid Pf Inj) 1 mg Q4H PRN IV PUSH pain 6-10 Last administered on 12/07/17at 17:09; Start 12/07/17 at 16:15; Stop 12/07/17 at 19:00 ; Status DC Lorazepam (Ativan Inj) 1 mg ONCE ONCE IV PUSH Last administered on 12/07/17 17:09; Start 12/07/17 at 16:15; Stop 12/07/17 at 16:47; Status DC Gadodiamide (Omniscan Pf Inj) 9 ml STK-MED ONCE IVCONTRAST Last administered on 12/07/17at 17:39; Start 12/07/17 at 17:39; Stop 12/07/17 at 17:40; Status DC Methocarbamol (Robaxin) 500 mg QID PRN PO MUSCLE SPASM Last administered on 08:50; Start 12/07/17 at 19:00 Oxycodone HCl (OxyCONTIN CR) 40 mg Q8HR PO Last administered on 12/08/17at 06:40 ; Start 12/07/17 at 22:00 Sodium Chloride (NS Flush) 2 ml UNSCH PRN IV FLUSH FLUSH AFTER USING IV ACCESS ; Start 12/07/17 at 19:00 Sodium Chloride (NS Flush) 2 ml BID IV FLUSH Last administered on 12/07/17at 21: 18; Start 12/07/17 at 21:00 Acetaminophen (Tylenol) 650 mg Q4H PRN PO TEMP > 100.4, pain1-4, HOGAN; Start at 19:00 Ondansetron HCl (Zofran Inj) 4 mg Q6H PRN IVP NAUSEA OR VOMITING; Start at 19:00 Hydromorphone HCl (Dilaudid Pf Inj) 0.25 mg Q3H PRN IV PUSH BREAKTHROUGH PAIN Last administered on 12/08/17at 08:49; Start 12/07/17 at 19:00 Naloxone HCl (Narcan Inj) 0.4 mg UNSCH PRN IV PUSH SEE LABEL COMMENTS; Start at 19:00 Senna/Docusate Sodium (Rhonda-Colace) 1 tab BID PO Last administered on at 08:50; Start 12/07/17 at 21:00 Magnesium Hydroxide (Milk Of Magnesia Liq) 30 ml Q12H PRN PO Mild constipation ; Start 12/07/17 at 19:00 Sennosides (Senokot) 17.2 mg Q12H PRN PO Moderate constipation; Start 12/07/17 at 19:00 Bisacodyl (Dulcolax Supp) 10 mg DAILY PRN RECTAL SEVERE CONSITIPATION; Start at 19:00 Lactulose (Lactulose Liq) 30 ml DAILY PRN PO SEVERE CONSITIPATION; Start at 19:00 Amitriptyline HCl (Elavil) 300 mg HS PRN PO SLEEP Last administered on at 22:32; Start 12/07/17 at 21:45 Dexamethasone Sodium Phosphate (Decadron Inj) 4 mg Q6H IV PUSH ; Start 12/08/17 at 14:00 Dexamethasone Sodium Phosphate (Decadron Inj) 10 mg ONCE ONCE IV PUSH ; Start 12/08/17 at 08:15; Stop 12/08/17 at 08:47; Status DC Pantoprazole Sodium (Protonix) 40 mg DAILY PO ; Start 12/08/17 at 09:00 Lorazepam (Ativan Inj) 1 mg ONCE ONCE IV PUSH ; Start 12/08/17 at 09:45; Stop 12/08/17 at 09:46; Status DC Vancomycin HCl 1000 mg/Sodium Chloride 250 ml @ 250 mls/hr CYLINDER BLOCK HOLE RELINER IV ; Start 12/08/17 at 06:00 Chlorhexidine Gluconate (Hibiclens 4% Top Soln) 1 applic HS TOP ; Start at 21:00; Stop 12/10/17 at 21:01 Medical Decision Making MDM Remarks Last 48 hours Impressions Carotid Artery Ultrasound 12/08/17 0811 Signed Impressions: Service Date/Time: November 09:50 - CONCLUSION: No evidence of flow-limiting carotid stenosis. Retrograde flow in the left vertebral artery likely indicative of left subclavian artery stenosis or occlusion. Further evaluation with CTA examination of the arch and carotids with attention to the subclavian arteries would be suggested. Ruslan See MD Cervical Spine X-Ray 12/08/17 0000 Signed Impressions: Service Date/Time: November 10:42 - CONCLUSION: Previous fusion. Prominent degenerative changes. No evidence of instability Ruslan See MD Cervical Spine MRI 12/07/17 0000 Signed Impressions: Service Date/Time: Thursday, December 07, 2017 17:17 - CONCLUSION: Moderate to severe thecal sac stenosis C3-4, C4-5 and C6-7 in addition to neural foramina compromise left C3-C4, bilateral C4-5 bilateral C6-7. There is abnormal signal within the spinal cord AP centered at C3-4 level may represent ischemic changes related to significant stenosis. Rosanna Ricci MD Attending Statement Cervical myelopathy. She has significant spinal stenosis and spinal cord edema at C3 and C4. I discussed with her the alternatives of treatment including continued conservative treatment versus surgical decompression with C3-4 C4-5 anterior cervical discectomy and arthrodesis.We have discussed the details including the [id number] details of the surgical procedure, its indications, alternatives, risks, and potential complications. Risks and potential complications include, but are not limited to, infection, blood loss, CSF leak, partial or complete loss of sight in one or both eyes, paresis, paralysis, permanent pain or difficulty swallowing, loss of bowel or bladder function, complications from anesthesia, blood clot, stroke, myocardial infarction, or even . I have ordered a set of flexion-extension x-rays of the cervical spine to rule out instability Carotid duplex have been ordered by Dr. Butts An MRI of the brain is pending Pulmonary aggressive pulmonary toilette, nasotracheal suction, and breathing treatments with nebulizers. Nutrition. Oral diet Renal. monitor closely urine output, BUN and creatinine Endocrine. Monitor serial Acu checks and SSI as needed in detail ID monitor for signs of infection Protonix for stress ulcer prophylaxis Skinny hose and SCD's for DVT prophylaxis Alex France MD Dec 08, 2017 11:45
[2017-12-08 11:48] VITALS: BP 139/76; PULSE 77; RESP 20; TEMP 99.1; O2SAT 99
[2017-12-08] MEDS ORDERED: VANCOMYCIN INJ 1,000 MG in SODIUM CHLOR 0.9% 250 ML INJ 250 ML IV ONE (12:00)
[2017-12-08] MEDS ORDERED: ceFAZolin 2 GM PREMIX 50 ML IV ONE (12:00)
[2017-12-08] MEDS: SODIUM CHLORIDE 0.9% FLUSH 10 ML FLUSH IV FLUSH SCH ×2 (12:37→20:18)
[2017-12-08] MEDS: DEXAMETHASONE SOD PHOS 4 MG/ML VIAL IV PUSH SCH ×2 (13:31→20:18)
[2017-12-08 13:32] LABS: C-REACTIVE PROTEIN 0.36 MG/DL (0.00-0.30)
[2017-12-08] MEDS: SODIUM CHLOR 0.9% 1000 ML INJ 1,000 ML IV SCH (13:36)
[2017-12-08 13:45] LABS: RHEUMATOID FACTOR SCREEN NEGATIVE (NEGATIVE)
[2017-12-08 13:57] LABS: FREE T4 0.98 NG/DL (0.76-1.46)
[2017-12-08 16:22] VITALS: BP 181/81; PULSE 70; RESP 20; TEMP 98.4; O2SAT 98
--- NOTE | 2017-12-08 16:53 | RADRPT ---
EXAM DATE/TIME: 12/08/2017 15:44 [facility] COMPARISON: No previous studies available for comparison. INDICATIONS : CVA. Bilateral arm weakness. CONTRAST: 9 cc Omniscan (gadodiamide) IV MEDICAL HISTORY : None. SURGICAL HISTORY : Back fusion. ENCOUNTER: Initial ACUITY: 1 day PAIN SCORE: 0/10 LOCATION: Head. TECHNIQUE: Multiplanar, multisequence MRI of the brain was performed both prior to and following the administrat ion of paramagnetic contrast. FINDINGS: CEREBRUM: The ventricles are normal for age. No evidence of midline shift, mass lesion, hemorrhage or acute in farction. No extraaxial fluid collections are seen. The pituitary gland and suprasellar cistern are normal in configuration. WHITE MATTER: No significant signal abnormalities are seen in the white matter. POSTERIOR FOSSA: The cerebellum and brainstem are intact. The 4th ventricle is midline. The cerebellopontine angle is unremarkable. The cerebellar tonsils are normal in position. DIFFUSION IMAGING: No focal areas of restricted diffusion are seen. No evidence of acute infarction. EXTRACRANIAL: The visualized portions of the orbits and paranasal sinuses are unremarkable. POST-CONTRAST: No abnormal areas of parenchymal or dural enhancement. No evidence of blood-brain barrier breakdown. CONCLUSION: Normal examination. Ruslan See MD on December 08, 2017 at 16:50 Board Certified Radiologist. This report was verified electronically.
--- NOTE | 2017-12-08 17:06 | RADRPT ---
EXAM DATE/TIME: 12/08/2017 15:31 [facility] COMPARISON: No previous studies available for comparison. INDICATIONS : Evaluate for pneumonia, pneumothorax, or communicable diease. Pre op nech surgery. MEDICAL HISTORY : None. SURGICAL HISTORY : None. ENCOUNTER: Initial ACUITY: 1 day PAIN SCORE: 0/10 LOCATION: Bilateral chest FINDINGS: PA and lateral views of the chest demonstrate the lungs to be symmetrically aerated without evidence of mass, infiltrate or effusion. The cardiomediastinal contours are unremarkable. Osseous structure s are intact. CONCLUSION: 1. No acute cardiopulmonary disease. Elder Riddle MD on December 08, 2017 at 17:04 Board Certified Radiologist. This report was verified electronically.
--- NOTE | 2017-12-08 17:25 | RADRPT ---
EXAM DATE/TIME: 12/08/2017 16:41 [facility] COMPARISON: No previous studies available for comparison. INDICATIONS : Cervical myelopathy with pain. RADIATION DOSE: 20.77 CTDIvol (mGy) MEDICAL HISTORY : None SURGICAL HISTORY : Cholecystectomy. Fusion, cervical. ENCOUNTER: Initial ACUITY: 1 day PAIN SCALE: 5/10 LOCATION: neck TECHNIQUE: Volumetric scanning of the cervical spine was performed. Multiplanar reconstructions in the sagittal, coronal and oblique axial planes were performed. Using automated exposure control and adjustment o f the mA and/or kV according to patient size, radiation dose was kept as low as reasonably achievable to obtain optimal diagnostic quality images. DICOM format image data is available electronically f or review and comparison. FINDINGS: Cervical spine alignment is satisfactory. There is no evidence of fracture or destructive change. The re is solid bony fusion of the C5 and C6 vertebrae. There is significant disc space narrowing at the adjacent levels with moderate endplate osteophytic spurring, mostly ventral mild dorsal disc osteophy te also present. There are erosive changes of the tip of the dens which appear arthritic. There is no evidence of bony canal stenosis. Mild bony foraminal stenosis is present most significantly at the C 7 nerve root level. There is no evidence of paraspinal hematoma. CONCLUSION: Arthritic changes. No acute bony findings. Ruslan See MD on December 08, 2017 at 17:20 Board Certified Radiologist. This report was verified electronically.
[2017-12-08] MEDS ORDERED: GADODIAMIDE PF 287 MG/ML 5 ML VIAL (for RAD MRI) IV PUSH ONE (17:31)
[2017-12-08] MEDS: AMITRIPTYLINE HCL 100 MG TAB PO PRN (20:20)
[2017-12-08] MEDS: CHLORHEXIDINE GLUCONATE 4% SOLN 120 ML BTL TOP SCH ×2 (21:00)
[2017-12-08 21:20] VITALS: BP 117/72; PULSE 72; RESP 17; TEMP 98.3; O2SAT 99
[2017-12-09] MEDS: METHOCARBAMOL 500 MG TAB PO PRN ×2 (00:53→20:16)
[2017-12-09] MEDS: DEXAMETHASONE SOD PHOS 4 MG/ML VIAL IV PUSH SCH ×4 (00:53→20:14)
[2017-12-09] MEDS: HYDROmorphone HCL PF 2 MG/ML VIAL IV PUSH PRN ×5 (00:53→20:17)
[2017-12-09 01:00] VITALS: BP 118/74; PULSE 88; RESP 17; TEMP 98; O2SAT 99
[2017-12-09] MEDS: SODIUM CHLOR 0.9% 1000 ML INJ 1,000 ML IV SCH ×4 (01:00→15:02)
[2017-12-09 04:45] VITALS: BP 115/67; PULSE 80; RESP 18; TEMP 97.3; O2SAT 98
[2017-12-09] MEDS: oxyCODONE HCL 40 MG CONTROLLED RELEASE TAB PO SCH ×3 (05:42→20:16)
[2017-12-09] MEDS ORDERED: GELFOAM SIZE 100 ONE ×2 (07:12→11:43)
[2017-12-09] MEDS ORDERED: THROMBIN (TOPICAL) 5,000 UNIT VIAL ONE (07:12)
[2017-12-09] MEDS ORDERED: GENTAMICIN SULFATE 80 MG/2 ML VIAL ONE (07:12)
[2017-12-09] MEDS ORDERED: ceFAZolin 2 GM PREMIX 50 ML ONE (07:12)
[2017-12-09] MEDS: SODIUM CHLORIDE 0.9% FLUSH 10 ML FLUSH IV FLUSH SCH ×2 (07:42→20:14)
[2017-12-09] MEDS: DOCUSATE SODIUM 50 MG/SENNA 8.6 MG TAB PO SCH ×2 (07:42→20:14)
[2017-12-09] MEDS: PANTOPRAZOLE SOD 40 MG DELAYED RELEASE TAB PO SCH (07:42)
[2017-12-09] MEDS ORDERED: ALPRAZolam 0.25 MG TAB PO ONE (08:00)
--- NOTE | 2017-12-09 08:00 | HHI.PR ---
Subjective Remarks worried about surgery Objective Vital Signs Date Time Temp Pulse Resp B/P (MAP) Pulse Ox O2 Delivery O2 Flow Rate FiO2 12/09/17 04:45 97.3 80 18 115/67 (83) 98 12/09/17 01:00 98.0 88 17 118/74 (89) 99 12/08/17 21:20 98.3 72 17 117/72 (87) 99 12/08/17 16:22 98.4 70 20 181/81 (114) 98 12/08/17 11:48 99.1 77 20 139/76 (97) 99 12/08/17 09:07 98.1 76 20 142/56 (84) 96 I/O 12/08/17 12/08/17 12/08/17 12/09/17 12/09/17 12/09/17 07:00 15:00 23:00 07:00 15:00 23:00 Intake Total 240 ml 800 ml 800 ml Balance 240 ml 800 ml 800 ml Intake Oral 240 ml 800 ml 800 ml # Voids 1 1 4 # Bowel Movements 0 0 Result Diagram: 12/08/1715 12/08/17 0715 Objective Remarks moves all well this am nl speech tearful Assessment and Plan Assessment and Plan imp us neg mri brain nl labs ok ua pend i dw staff xanax for anxiety for c spine surgery Cole Butts MD Dec 09, 2017 08:00
[2017-12-09 09:24] VITALS: BP 134/70; PULSE 85; RESP 20; TEMP 99.2; O2SAT 99
[2017-12-09 10:18] LABS: BACTERIA, URINE RARE /hpf; BILIRUBIN, URINE NEG (NEG); BLOOD, URINE SMALL (NEG); GLUCOSE,URINE NEG (NEG); KETONE, URINE 10 mg/dL (NEG); NITRITE,URINE NEG (NEG); PH, URINE 6.5 (5.0-8.5); SQUAMOUS EPITHELIAL CELL URINE 5 /hpf (0-5); TRANSITIONAL EPI CELLS, URINE 1 /hpf; URINE COLOR YELLOW (YELLW/STRAW); URINE LEUKOCYTE ESTERASE SMALL (NEG)
[2017-12-09] MEDS ORDERED: GLYCOPYRROLATE 1 MG/5 ML SYRINGE IV PUSH ONE (12:00)
[2017-12-09] MEDS ORDERED: SODIUM CHLORID 0.9% 500 ML INJ 500 ML IV ONE (12:00)
[2017-12-09] MEDS ORDERED: SODIUM CHLOR 0.9% 1000 ML INJ 2,000 ML IV ONE (12:00)
[2017-12-09] MEDS ORDERED: DEXAMETHASONE SOD PHOS 4 MG/ML VIAL IV ONE (12:00)
[2017-12-09] MEDS ORDERED: PHENYLEPHRINE HCL 10 MG/ML VIAL IV ONE (12:00)
[2017-12-09] MEDS ORDERED: PROPOFOL 200 MG/20 ML AMP IV ONE (12:00)
[2017-12-09] MEDS ORDERED: LIDOCAINE HCL 1% PF 5 ML SYRINGE OTHER ONE (12:00)
[2017-12-09] MEDS ORDERED: ROCURONIUM INJ 50 MG/5 ML SYRINGE IV PUSH ONE (12:00)
[2017-12-09] MEDS ORDERED: SODIUM CHLOR 0.9% 250 ML INJ 250 ML IV ONE (12:00)
[2017-12-09] MEDS ORDERED: PHENYLEPH/NS 1000 MCG/10 ML SYR IV ONE (12:00)
[2017-12-09] MEDS ORDERED: NEOSTIGMINE 5 MG/5 ML SYRINGE IV PUSH ONE (12:00)
[2017-12-09] MEDS ORDERED: ONDANSETRON HCL 4 MG/2 ML VIAL IV ONE (12:00)
[2017-12-09] MEDS ORDERED: DEXMEDETOMIDINE HCL 200 MCG/2 ML VIAL ONE (12:53)
[2017-12-09 13:42] LABS: ANA SCREEN NEG (NEG)
--- NOTE | 2017-12-09 15:09 | PD.OP ---
Operative Report Date of Surgery: Dec 09, 2017 Preoperative Diagnosis: cervical spinal stenosis with myelopathy Postoperative Diagnosis: cervical spinal stenosis with myelopathy Procedure: C3-4, C4-5 anterior cervical discectomy, interbody arthodhesis using PEEK cage filled with autologous bone graft, Simplicity plate and screws Anesthesia: general Surgeon: Alex France Resource Specialist Teacher(s): Jimena Orozco Operation and Findings: INDICATIONS FOR THE PROCEDURE Ms Rios is a 62 year old female who presented a with cervical myelopathy. She was found to have severe stenosis at C3-4, C4-5 with compression of the spinal cord. He failed nonoperative treatment. A surgical decompression and arthrodhesis were indicated. The [id number] details of the procedure, indications, alternatives, risks and potential complications were fully discussed with the patient. The patient fully understood. All The questions were answered. No guarantees were given. The patient voiced requesting the procedure and provided informed consents. The patient was offered the alternative of delaying the procedure and continuing with nonsurgical management. DETAILS OF THE SURGICAL PROCEDURE After the induction of general anesthesia, endotracheal intubation was performed. A Morales catheter, bilateral ZEINAB hose, and sequential compression devices were placed and kept throughout the procedure. The patient was positioned supine on a Sandeep table with the head over a gel doughnut. All pressure points were carefully padded with egg crate mattress. The eyes were tapped shut after ointment was applied by the anesthesiologist to prevent corneal abrasion. A Rachel hugger was placed over the exposed lower body to maintain control of the core body temperature. The electrophysiological team placed the needles and electrodes in their proper location and baseline SSEP's and motor evoked potentials were registered. The anterior cervical region was prepped and draped in the usual sterile fashion. A localizing x-ray was performed with a C-arm. The surgical procedure was performed in several steps as follow: SURGICAL APPROACH A skin incision was made along the middle cervical crease with a #10 blade. The dissection was carried out through the platysma exposing the sternocleidomastoid muscle. The cervical spine was approached following the fascial layers of the neck just medial to the anterior border of the sternocleidomastoid and carotid sheath by a combination of sharp and dull dissection. The omohyoid muscle was identified and carefully dissected laterally and the deep cervical fascia was carefully opened. The longus colli muscles were retracted to each side of the midline. A marker was placed at the disc space C3-4 and a cross-table lateral x-ray performed with a C-arm. SURGICAL DECOMPRESSION In order to decompress the anterior surface of the spinal cord it was necessary to preform a microsurgical resection of the disk. At this point in the procedure the operating microscope was draped in the usual sterile fashion and brought to the field. The rest of the surgical procedure was performed using microdissection technique with the exception of the closure. Under the operative microscopic, an anterior osteophytic spur was carefully removed using the leksell, and a self-retaining retractor was placed underneath the longus colli muscle. The annulus at C3-4, C4-5 was incised with a #15 blade and microdiscectomy was then carefully carried out using angled curets and pituitary forceps. The patient had a posterior disk extrusion which was producing mass affect on the anterior surface of the dural sac and spinal cord compression. This was carefully drilled with a TPS drill and resected with a think foot plate 2mm kerrison under high magnification. The posterior longitudinal ligament at both levels was then elevated with an angled curet and incised with a 15 bladed knife. A careful resection of the posterior longitudinal ligament was carried out using a thin footplate 2 mm Kerrison. The decompression was then carried out laterally, and a bilateral foraminotomy was performed with a 2mm thin foot Kerrison. Then the vertebral bodies above and below the disk space were undercut using a 2 mm thin foot Kerrison. The epidural space was the systematically assessed with a nerve hook in search for disk fragments. An excellent decompression was achieved in both, the dural sac and bilateral exiting nerve roots. The incision was then irrigated with a large amount of antibiotic solution INTERBODY ARTHRODHESIS In order to avoid collapse of the disk space which would result in bilateral foraminal stenosis, and to increase the chances of a successful fusion, it was necessary to place an interbody cage filled with autologous bone. At this point of the procedure, the superior and inferior endplates were then evenly decorticated with a TPS drill. The use of a drill in combination with a curette allowed me to systematically remove the cartilaginous endplates, exposing healthy bone for the interbody arthrodesis. fourteen millimeters distraction pins were then placed at the vertebral bodies adjacent to the disk space, and gentle distraction was applied. The size of the interbody cage was then assessed using different size spacers, and a rasp was used to ensure no residual cartilage. A PEEK cage of the appropriate size was selected, and the interbody arthrodesis was then preformed by carefully impacting a PEEK cage filled with autologous bone graft to the disc space C3-4, C4-5. An excellent position of the cage was achieved. This was was confirmed anatomically by feeling the space posterior to the implant and distance to the anterior surface of the dural sac. Radiological confirmation of the position was performed with a cross lateral xray performed with the C-arm. INTERNAL INSTRUMENTAL FIXATION Once that the interbody device was in an appropriate position, it was necessary to stabilize the spine with anterior instrumentation. Anterior instrumentation has demonstrated to increase the rate of fusion, accelerate the patient's recovery, and decrease the rate of failed interbody grafts. At this point of the procedure, the distance between the vertebral bodies was carefully measures, and a Simplicity plate was brought to the field and presented in front of the C3, C4 and C5 vertebral bodies. Cafe Or Restaurant Manager holes were then drilled using the TPS drill, and the plate was then secured to the spine using self-drilling, self-tapping screws. Initially, the inferior right screw was inserted, followed by placement of the contra lateral upper screw. The remaining screws were sequentially placed in a contra-lateral fashion. A proper purchase was achieved with all screws and the position of the cage, plate and screws, and alignment of the spine was assessed anatomically by direct visualization, and radiologically by performing a cross lateral xray of the cervical spine with the C-arm. CLOSURE The incision was irrigated with several liters of antibiotic solution. Hemostasis was achieved with a bipolar. The screws were locked to prevent backing out. A 7 mm Sandeep-Schwartz drain was left in the prevertebral space and externalized through a separate stab incision. The incision was then closed in layers. 3-0 Vicryl with interrupted sutures was used to close the platysma and subcutaneous tissue. The skin was closed with 4-0 running subcuticular Vicryl and Dermabond was applied to the skin. The drain was secured with a 3-0 nylon. At the end of the procedure the sponge, needle and instrument counts were all correct. The estimated blood loss was less than 70 cc. No blood transfusion was given. No intraoperative complications occurred. The patient received prophylactic antibiotics. The patient was then extubated and transferred to the recovery room in stable condition. Alex France MD Dec 09, 2017 15:09
[2017-12-09] MEDS ORDERED: cloNIDine HCL 0.1 MG TAB PO/NG PRN (15:15)
[2017-12-09] MEDS ORDERED: ACETAMINOPHEN/HYDROcodone 325 MG/10 MG TAB PO PRN (15:15)
[2017-12-09] MEDS ORDERED: RESP: ALBUTEROL 2.5 MG/3 ML NEB (PRN) INH (15:15)
[2017-12-09] MEDS ORDERED: ONDANSETRON HCL 4 MG/2 ML VIAL IV PRN (15:15)
[2017-12-09] MEDS ORDERED: MORPHINE SULFATE 4 MG/ML INJ IV PUSH PRN ×2 (15:15)
[2017-12-09] MEDS ORDERED: DEXTROSE 50% IN WATER 50 ML VIAL(D50) IV PUSH PRN (15:15)
[2017-12-09] MEDS ORDERED: GLUCAGON 1 MG/ML VIAL OTHER PRN (15:15)
[2017-12-09] MEDS ORDERED: MAGNESIUM HYDROXIDE SUSP 30 ML CUP PO PRN (15:15)
[2017-12-09] MEDS ORDERED: CYCLOBENZAPRINE HCL 10 MG TAB PO PRN (15:15)
[2017-12-09] MEDS ORDERED: ACETAMINOPHEN 325 MG TAB PO PRN (15:15)
[2017-12-09] MEDS ORDERED: BISACODYL 10 MG SUPP RECTAL PRN (15:15)
[2017-12-09] MEDS ORDERED: DO NOT ADM ANY ANTICOAGULANT DRUGS PRN (15:22)
[2017-12-09] MEDS ORDERED: LORazepam 2 MG/ML VIAL ONE (15:24)
[2017-12-09] MEDS ORDERED: MIDAZOLAM HCL 2 MG/2 ML VIAL ONE (15:31)
--- NOTE | 2017-12-09 15:55 | RADRPT ---
EXAM DATE/TIME: 12/09/2017 13:22 [facility] COMPARISON: No previous studies available for comparison. INDICATIONS : Fusion C3,C4 and C4,C5 with screw and plate placement. MEDICAL HISTORY : None. SURGICAL HISTORY : Cholecystectomy. Fusion, cervical. ENCOUNTER: Subsequent ACUITY: 2 days PAIN SCORE: Non-responsive. LOCATION: Cervical spine. FINDINGS: Status post anterior cervical fusion C3-C5. Anatomic alignment. CONCLUSION: Anatomic alignment. Jama Ramirez MD FACR on December 09, 2017 at 15:52 Board Certified Radiologist. This report was verified electronically.
[2017-12-09] MEDS ORDERED: DEXAMETHASONE SOD PHOS 4 MG/ML VIAL IV PUSH SCH (16:00)
[2017-12-09 16:39] VITALS: BP 120/59; PULSE 93; RESP 20; TEMP 97.4; O2SAT 99
[2017-12-09] MEDS: ACETAMINOPHEN/HYDROcodone 325 MG/10 MG TAB PO PRN (16:49)
--- NOTE | 2017-12-09 17:11 | HHI.PR ---
Subjective Remarks Pt just got back from OR. complains of pain and nausea but no vomiting. Objective Vitals Vital Signs Date Time Temp Pulse Resp B/P (MAP) Pulse Ox O2 Delivery O2 Flow Rate FiO2 12/09/17 16:39 97.4 93 20 120/59 (79) 99 12/09/17 15:59 83 22 107/51 (69) 99 Nasal Cannula 3 12/09/17 15:45 82 22 105/53 (70) 99 Nasal Cannula 3 12/09/17 15:30 84 22 138/67 (90) 99 Nasal Cannula 3 12/09/17 15:23 98.4 112 22 149/70 (96) 98 Nasal Cannula 3 12/09/17 09:24 99.2 85 20 134/70 (91) 99 12/09/17 04:45 97.3 80 18 115/67 (83) 98 12/09/17 01:00 98.0 88 17 118/74 (89) 99 12/08/17 21:20 98.3 72 17 117/72 (87) 99 I/O 12/08/17 12/08/17 12/08/17 12/09/17 12/09/17 12/09/17 06:59 14:59 22:59 06:59 14:59 22:59 Intake Total 240 ml 800 ml 800 ml 2100 ml Output Total 600 ml Balance 240 ml 800 ml 800 ml 1500 ml Intake Oral 240 ml 800 ml 800 ml Other 2100 ml Output Urine Total 600 ml # Voids 1 1 4 # Bowel Movements 0 0 Result Diagram: 12/08/17 0715 12/08/17 0715 Imaging Last Impressions Cervical Spine X-Ray 12/09/17 0000 Signed Impressions: Service Date/Time: Saturday, December 09, 2017 13:22 - CONCLUSION: Anatomic alignment. Jama Ramirez MD FACR Carotid Artery Ultrasound 12/08/17 0811 Signed Impressions: Service Date/Time: November 09:50 - CONCLUSION: No evidence of flow-limiting carotid stenosis. Retrograde flow in the left vertebral artery likely indicative of left subclavian artery stenosis or occlusion. Further evaluation with CTA examination of the arch and carotids with attention to the subclavian arteries would be suggested. Ruslan See MD Chest X-Ray 12/08/17 0000 Signed Impressions: Service Date/Time: November 15:31 - CONCLUSION: 1. No acute cardiopulmonary disease. Elder Riddle MD Cervical Spine CT 12/08/17 0000 Signed Impressions: Service Date/Time: November 16:41 - CONCLUSION: Arthritic changes. No acute bony findings. Ruslan See MD Brain MRI 12/08/17 0000 Signed Impressions: Service Date/Time: November 15:44 - CONCLUSION: Normal examination. Ruslan See MD Cervical Spine MRI 12/07/17 0000 Signed Impressions: Service Date/Time: Thursday, December 07, 2017 17:17 - CONCLUSION: Moderate to severe thecal sac stenosis C3-4, C4-5 and C6-7 in addition to neural foramina compromise left C3-C4, bilateral C4-5 bilateral C6-7. There is abnormal signal within the spinal cord AP centered at C3-4 level may represent ischemic changes related to significant stenosis. Rosanna Ricci MD Objective Remarks GENERAL: Alert, and awake but speaks very soft EYES: No scleral icterus. No injection or drainage. NECK: brace in place CARDIOVASCULAR: Regular rate and rhythm without murmurs. RESPIRATORY: Poor air entry. No appreciable wheezing. GASTROINTESTINAL: Abdomen soft, non-tender, nondistended. MUSCULOSKELETAL: able to squeeze my hand bilaterally. Procedures None. A/P Problem List: (1) Cervical myelopathy ICD Code: G95.9 - Disease of spinal cord, unspecified Status: Acute (2) Chronic neck pain ICD Code: M54.2 - Cervicalgia; G89.29 - Other chronic pain Status: Acute Assessment and Plan Patient is a 62-year-old female with primary medical history of neck fusion, lower back fusion with rods, chronic pain who came in the hospital for increasing neck and back pain. Cervical myelopathy, Acute on chronic - worsening cervical pain - MRI shows cervical spinal stenosis. s/p C3-4, C4-5 anterior cervical discectomy POD 0. Pain management, rehab and anticoag per neurosx. - PT/OT eval and treat - Neurology following. - Continue Dexamethasone 4mg IV Q6hrs. Discharge Planning continue post op care. Jyoti Flores MD Dec 09, 2017 17:11
[2017-12-09 20:00] VITALS: BP 124/60; PULSE 79; RESP 17; TEMP 97.5; O2SAT 99
[2017-12-09] MEDS: ceFAZolin 2 GM PREMIX 50 ML IV SCH (20:12)
[2017-12-09] MEDS: DOCUSATE SODIUM 100 MG CAP PO SCH (20:14)
[2017-12-09] MEDS: CHLORHEXIDINE GLUCONATE 4% SOLN 120 ML BTL TOP SCH ×3 (20:15)
[2017-12-09] MEDS: AMITRIPTYLINE HCL 100 MG TAB PO PRN (20:17)
[2017-12-10] VITALS (7 sets, daily range): BP systolic 107–177; BP diastolic 56–90; PULSE 18–87; RESP 17–20; TEMP 98–98.8; O2SAT 95–100
[2017-12-10] MEDS: DEXAMETHASONE SOD PHOS 4 MG/ML VIAL IV PUSH SCH ×4 (00:37→20:01)
[2017-12-10] MEDS: HYDROmorphone HCL PF 2 MG/ML VIAL IV PUSH PRN ×4 (00:38→11:53)
[2017-12-10] MEDS: ACETAMINOPHEN/HYDROcodone 325 MG/10 MG TAB PO PRN ×5 (00:39→23:19)
[2017-12-10] MEDS: MENTHOL LOZENGE BUCCAL PRN ×2 (00:40→05:20)
--- NOTE | 2017-12-10 00:43 | EKG ---
Date Performed: 12/08/2017 Time Performed: 17:18:35 PTAGE: 62 years EKG: Sinus rhythm POSSIBLE LEFT ATRIAL ENLARGEMENT MODERATE INTRAVENTRICULAR CONDUCTION DELAY NONSPECIFIC ST & T-WAVE ABNORMALITY BORDERLINE ECG NO PREVIOUS TRACING DOCTOR: Gui Baker Interpretating Date/Time 12/10/2017 00:43:00
[2017-12-10] MEDS: SODIUM CHLOR 0.9% 1000 ML INJ 1,000 ML IV SCH ×6 (01:02→22:40)
[2017-12-10] MEDS: ceFAZolin 2 GM PREMIX 50 ML IV SCH ×2 (05:21→11:53)
[2017-12-10] MEDS: METHOCARBAMOL 500 MG TAB PO PRN ×2 (06:09→11:53)
[2017-12-10] MEDS: oxyCODONE HCL 40 MG CONTROLLED RELEASE TAB PO SCH ×3 (06:09→22:10)
[2017-12-10] MEDS: PANTOPRAZOLE SODIUM 40 MG VIAL IVP SCH (08:35)
[2017-12-10] MEDS: PANTOPRAZOLE SOD 40 MG DELAYED RELEASE TAB PO SCH (08:37)
[2017-12-10] MEDS: DOCUSATE SODIUM 100 MG CAP PO SCH ×2 (08:37→19:59)
[2017-12-10] MEDS: SODIUM CHLORIDE 0.9% FLUSH 10 ML FLUSH IV FLUSH SCH ×2 (08:38→20:06)
--- NOTE | 2017-12-10 13:11 | HHI.NSPN ---
History Chief Complaint: Pain Interval History Patient is status post anterior cervical discectomy and fusion. History of chronic pain. Continues to complain of pain radiating down her arms with associated numbness. Reports the pain medication is not helping. Reports pain is a level of 10. History of chronic opioid use System Review Comments Unchanged Exam Results Vital Signs Date Time Temp Pulse Resp B/P (MAP) Pulse Ox O2 Delivery O2 Flow Rate FiO2 12/10/17 11:49 98.8 75 20 130/68 (88) 98 12/09/17 15:59 Nasal Cannula 3 Intake and Output 12/10/17 12/10/17 12/11/17 08:00 16:00 00:00 Intake Total 50 ml Balance 50 ml Physical Examination Ms. Rios is alert, awake and oriented to time, place and person. Speech is fluent. Higher cognitive functions are normal. Patient is alert and awake. She is sitting in bed. She reports ambulating to the bathroom. Motor strength is at least 4+/5, somewhat weaker on the right hand but complains of pain Remains in [place] J collar Medical Decision Making Impression and Plan Status post anterior cervical discectomy and fusion. Opioid tolerance. We will try to modify her pain medication in order to control her pain. Duplicate medications have been discontinued. Spoke with pharmacist to obtain right dosing of pain medication and increase her Dilaudid. Also discussed with charge nurse and bedside nurse Lonny Ann MD Dec 10, 2017 13:11
[2017-12-10] MEDS: HYDROmorphone HCL PF 2 MG/ML VIAL IV PRN ×2 (15:20→20:01)
--- NOTE | 2017-12-10 15:37 | HHI.PR ---
Subjective Remarks Pt is very tearful, states pain is not well controlled. she states that her upper ext feel heavy and doesn't see much improvement compared to before the sx. Objective Vitals Vital Signs Date Time Temp Pulse Resp B/P (MAP) Pulse Ox O2 Delivery O2 Flow Rate FiO2 12/10/17 11:49 98.8 75 20 130/68 (88) 98 12/10/17 08:07 98.0 72 20 112/56 (74) 95 12/10/17 04:00 98.1 83 17 107/59 (75) 98 12/10/17 00:00 98.2 87 18 131/59 (83) 97 12/09/17 20:00 97.5 79 17 124/60 (81) 99 12/09/17 16:39 97.4 93 20 120/59 (79) 99 12/09/17 15:59 83 22 107/51 (69) 99 Nasal Cannula 3 12/09/17 15:45 82 22 105/53 (70) 99 Nasal Cannula 3 12/09/17 15:30 84 22 138/67 (90) 99 Nasal Cannula 3 I/O 12/09/17 12/09/17 12/09/17 12/10/17 12/10/17 12/10/17 07:00 15:00 23:00 07:00 15:00 23:00 Intake Total 800 ml 2100 ml 50 ml Output Total 600 ml Balance 800 ml 1500 ml 50 ml Intake Oral 800 ml IV Total 50 ml Other 2100 ml Output Urine Total 600 ml # Voids 4 1 2 # Bowel Movements 0 0 0 Result Diagram: 12/08/17 0715 12/08/17 0715 Imaging Last Impressions Cervical Spine X-Ray 12/09/17 0000 Signed Impressions: Service Date/Time: Saturday, December 09, 2017 13:22 - CONCLUSION: Anatomic alignment. Jama Ramirez MD FACR Carotid Artery Ultrasound 12/08/17 0811 Signed Impressions: Service Date/Time: November 09:50 - CONCLUSION: No evidence of flow-limiting carotid stenosis. Retrograde flow in the left vertebral artery likely indicative of left subclavian artery stenosis or occlusion. Further evaluation with CTA examination of the arch and carotids with attention to the subclavian arteries would be suggested. Ruslan See MD Chest X-Ray 12/08/17 0000 Signed Impressions: Service Date/Time: November 15:31 - CONCLUSION: 1. No acute cardiopulmonary disease. Elder Riddle MD Cervical Spine CT 12/08/17 0000 Signed Impressions: Service Date/Time: November 16:41 - CONCLUSION: Arthritic changes. No acute bony findings. Ruslan See MD Brain MRI 12/08/17 0000 Signed Impressions: Service Date/Time: November 15:44 - CONCLUSION: Normal examination. Ruslan See MD Cervical Spine MRI 12/07/17 0000 Signed Impressions: Service Date/Time: Thursday, December 07, 2017 17:17 - CONCLUSION: Moderate to severe thecal sac stenosis C3-4, C4-5 and C6-7 in addition to neural foramina compromise left C3-C4, bilateral C4-5 bilateral C6-7. There is abnormal signal within the spinal cord AP centered at C3-4 level may represent ischemic changes related to significant stenosis. Rosanna Ricci MD Objective Remarks GENERAL: Alert, and awake but speaks very soft EYES: No scleral icterus. No injection or drainage. NECK: brace in place CARDIOVASCULAR: Regular rate and rhythm without murmurs. RESPIRATORY: Poor air entry. No appreciable wheezing. GASTROINTESTINAL: Abdomen soft, non-tender, nondistended. MUSCULOSKELETAL: able to squeeze my hand bilaterally. Procedures None. A/P Problem List: (1) Cervical myelopathy ICD Code: G95.9 - Disease of spinal cord, unspecified Status: Acute (2) Chronic neck pain ICD Code: M54.2 - Cervicalgia; G89.29 - Other chronic pain Status: Acute Assessment and Plan Patient is a 62-year-old female with primary medical history of neck fusion, lower back fusion with rods, chronic pain who came in the hospital for increasing neck and back pain. Cervical myelopathy, Acute on chronic - worsening cervical pain - MRI shows cervical spinal stenosis. s/p C3-4, C4-5 anterior cervical discectomy POD 0. Pain management, rehab and anticoag per neurosx. - PT/OT eval and treat - Neurology following and adjusting pain meds. - Continue Dexamethasone 4mg IV Q6hrs. u/s carotid showed no evidence of flow-limiting carotid stenosis however retrograde flow in the left vertebral art. likely indivative of the left subclavian art. stenosis or occlusion. I will go ahead and check BP on both arms and if abnormal will order CTA chest to r/o subclavian stenosis Discharge Planning continue post op care. pain management per neurosx Jyoti Flores MD Dec 10, 2017 15:37
[2017-12-10 15:49] LABS: METHYLMALONIC ACID 0.16 nmol/mL (<=0.40)
[2017-12-10] MEDS: CHLORHEXIDINE GLUCONATE 4% SOLN 120 ML BTL TOP SCH ×2 (20:00)
[2017-12-10] MEDS: AMITRIPTYLINE HCL 100 MG TAB PO PRN (22:13)
[2017-12-11] VITALS (8 sets, daily range): BP systolic 128–178; BP diastolic 58–93; PULSE 72–94; RESP 18–20; TEMP 97.7–98.1; O2SAT 96–100
[2017-12-11] MEDS: HYDROmorphone HCL PF 2 MG/ML VIAL IV PRN ×5 (00:32→21:22)
[2017-12-11] MEDS: DEXAMETHASONE SOD PHOS 4 MG/ML VIAL IV PUSH SCH ×4 (03:18→21:22)
[2017-12-11] MEDS: oxyCODONE HCL 40 MG CONTROLLED RELEASE TAB PO SCH (05:40)
[2017-12-11] MEDS: SODIUM CHLOR 0.9% 1000 ML INJ 1,000 ML IV SCH ×3 (07:02→21:25)
[2017-12-11] MEDS: PANTOPRAZOLE SOD 40 MG DELAYED RELEASE TAB PO SCH (08:45)
[2017-12-11] MEDS: ACETAMINOPHEN/HYDROcodone 325 MG/10 MG TAB PO PRN ×3 (08:45→19:53)
[2017-12-11] MEDS: DOCUSATE SODIUM 100 MG CAP PO SCH ×2 (08:45→21:22)
[2017-12-11] MEDS: SODIUM CHLORIDE 0.9% FLUSH 10 ML FLUSH IV FLUSH SCH ×2 (08:47→21:22)
[2017-12-11] MEDS: PANTOPRAZOLE SODIUM 40 MG VIAL IVP SCH (08:47)
--- NOTE | 2017-12-11 12:49 | HHI.NSPN ---
History Chief Complaint: Pain Interval History Patient is status post anterior cervical discectomy and fusion. History of chronic pain. Today the patient reports mild improvement in her pain although there is still some radiation down the arms Exam Results Vital Signs Date Time Temp Pulse Resp B/P (MAP) Pulse Ox O2 Delivery O2 Flow Rate FiO2 12/11/17 12:17 98.1 73 20 151/80 (103) 99 12/09/17 15:59 Nasal Cannula 3 Physical Examination Patient is alert and awake. She is sitting in bed. She reports ambulating to the bathroom. Motor strength is at least 4+/5, somewhat weaker on the right hand but complains of pain Remains in [place] J collar. Affect is improved as well as pain control Medical Decision Making Impression and Plan Status post anterior cervical discectomy and fusion. Opioid tolerance. Pain is better control and patient's affect is improved Lonny Ann MD Dec 11, 2017 12:49
[2017-12-11] MEDS ORDERED: oxyCODONE HCL 20 MG CONTROLLED RELEASE TAB PO SCH (14:00)
--- NOTE | 2017-12-11 15:13 | HHI.PR ---
Subjective Remarks Pt states she feels a little bit better today but pain is still present. States that she feels emotional but tries not to cry. States that she did lose her and had been feeling down but slowly got better until her pains started. She feels somewhat discouraged that her pain is still present but understands that it is to be expected post op but states that she at times falls behind on her pain regimen due to waiting 1-2 hours whenever she asks for pain meds. Objective Vitals Vital Signs Date Time Temp Pulse Resp B/P (MAP) Pulse Ox O2 Delivery O2 Flow Rate FiO2 12/11/17 12:17 98.1 73 20 151/80 (103) 99 12/11/17 07:51 98.0 83 20 138/73 (94) 100 12/11/17 04:34 97.8 72 18 128/60 (82) 100 12/11/17 01:15 97.7 75 18 133/58 (83) 96 12/10/17 21:11 98.0 18 18 177/79 (111) 100 12/10/17 16:43 130/90 (103) 12/10/17 15:53 98.5 83 20 167/74 (105) 99 I/O 12/10/17 12/10/17 12/10/17 12/11/17 12/11/17 12/11/17 06:59 14:59 22:59 06:59 14:59 22:59 Intake Total 50 ml 1460 ml Balance 50 ml 1460 ml Intake Oral 960 ml IV Total 50 ml 500 ml # Voids 2 3 # Bowel Movements 0 Result Diagram: 12/08/17 0715 12/08/17 0715 Imaging Last Impressions Cervical Spine X-Ray 12/09/17 0000 Signed Impressions: Service Date/Time: Saturday, December 09, 2017 13:22 - CONCLUSION: Anatomic alignment. Jama Ramirez MD FACR Carotid Artery Ultrasound 12/08/17 0811 Signed Impressions: Service Date/Time: November 09:50 - CONCLUSION: No evidence of flow-limiting carotid stenosis. Retrograde flow in the left vertebral artery likely indicative of left subclavian artery stenosis or occlusion. Further evaluation with CTA examination of the arch and carotids with attention to the subclavian arteries would be suggested. Ruslan See MD Chest X-Ray 2/15/18 0000 Signed Impressions: Service Date/Time: November 15:31 - CONCLUSION: 1. No acute cardiopulmonary disease. Elder Riddle MD Cervical Spine CT 12/08/17 0000 Signed Impressions: Service Date/Time: , December 08, 2017 16:41 - CONCLUSION: Arthritic changes. No acute bony findings. Ruslan See MD Brain MRI 12/08/17 0000 Signed Impressions: Service Date/Time: November 15:44 - CONCLUSION: Normal examination. Ruslan See MD Cervical Spine MRI 12/07/17 0000 Signed Impressions: Service Date/Time: Thursday, December 07, 2017 17:17 - CONCLUSION: Moderate to severe thecal sac stenosis C3-4, C4-5 and C6-7 in addition to neural foramina compromise left C3-C4, bilateral C4-5 bilateral C6-7. There is abnormal signal within the spinal cord AP centered at C3-4 level may represent ischemic changes related to significant stenosis. Rosanna Ricci MD Objective Remarks GENERAL: Alert, and awake kneeling at side of bed, praying. able to get up and lay back in bed EYES: EOMI NECK: brace in place CARDIOVASCULAR: Regular rate and rhythm without murmurs. RESPIRATORY: Poor air entry. No appreciable wheezing. GASTROINTESTINAL: Abdomen soft, non-tender, nondistended. MUSCULOSKELETAL: able to squeeze my hand bilaterally. Psych: less emotional today but does get teary. Procedures None. A/P Problem List: (1) Cervical myelopathy ICD Code: G95.9 - Disease of spinal cord, unspecified Status: Acute (2) Chronic neck pain ICD Code: M54.2 - Cervicalgia; G89.29 - Other chronic pain Status: Acute Assessment and Plan Patient is a 62-year-old female with primary medical history of neck fusion, lower back fusion with rods, chronic pain who came in the hospital for increasing neck and back pain. Cervical myelopathy, Acute on chronic - worsening cervical pain, MRI showed cervical spinal stenosis. s/p C3-4, C4- 5 anterior cervical discectomy POD 2. continue Pain management, rehab and anticoag per neurosx. Pain seems to be improving a bit but pt is very emotional and has a component of anxiety and I wonder if there is a component of depression as well. I did offer pt a psych consult but she would like to think about it. - PT/OT eval and treat - Neurology following and adjusting pain meds. - Continue Dexamethasone 4mg IV Q6hrs. u/s carotid showed no evidence of flow-limiting carotid stenosis however retrograde flow in the left vertebral art. likely indicative of the left subclavian art. stenosis or occlusion. There doesn't seem to be a big difference w BP when comparing both arms. check CTA to r/o subclavian stenosis Discharge Planning continue post op care. pain management per neurosx f/u CTA Jyoti Flores MD Dec 11, 2017 15:13
--- NOTE | 2017-12-11 15:43 | HHI.PR ---
Subjective Remarks NOt seen Objective Vitals Vital Signs Date Time Temp Pulse Resp B/P (MAP) Pulse Ox O2 Delivery O2 Flow Rate FiO2 12/11/17 12:17 98.1 73 20 151/80 (103) 99 12/11/17 07:51 98.0 83 20 138/73 (94) 100 12/11/17 04:34 97.8 72 18 128/60 (82) 100 12/11/17 01:15 97.7 75 18 133/58 (83) 96 12/10/17 21:11 98.0 18 18 177/79 (111) 100 12/10/17 16:43 130/90 (103) 12/10/17 15:53 98.5 83 20 167/74 (105) 99 I/O 12/10/17 12/10/17 12/10/17 12/11/17 12/11/17 12/11/17 07:00 15:00 23:00 07:00 15:00 23:00 Intake Total 50 ml 1460 ml Balance 50 ml 1460 ml Intake Oral 960 ml IV Total 50 ml 500 ml # Voids 2 3 # Bowel Movements 0 Result Diagram: 12/08/17 0715 12/08/17 0715 Imaging Last Impressions Cervical Spine X-Ray 12/09/17 0000 Signed Impressions: Service Date/Time: Saturday, December 09, 2017 13:22 - CONCLUSION: Anatomic alignment. Jama Ramirez MD FACR Carotid Artery Ultrasound 12/08/17 0811 Signed Impressions: Service Date/Time: November 09:50 - CONCLUSION: No evidence of flow-limiting carotid stenosis. Retrograde flow in the left vertebral artery likely indicative of left subclavian artery stenosis or occlusion. Further evaluation with CTA examination of the arch and carotids with attention to the subclavian arteries would be suggested. Ruslan See MD Chest X-Ray 12/08/17 0000 Signed Impressions: Service Date/Time: November 15:31 - CONCLUSION: 1. No acute cardiopulmonary disease. Elder Riddle MD Cervical Spine CT 12/08/17 0000 Signed Impressions: Service Date/Time: November 16:41 - CONCLUSION: Arthritic changes. No acute bony findings. Ruslan See MD Brain MRI 12/08/17 0000 Signed Impressions: Service Date/Time: November 15:44 - CONCLUSION: Normal examination. Ruslan See MD Cervical Spine MRI 12/07/17 0000 Signed Impressions: Service Date/Time: Thursday, December 07, 2017 17:17 - CONCLUSION: Moderate to severe thecal sac stenosis C3-4, C4-5 and C6-7 in addition to neural foramina compromise left C3-C4, bilateral C4-5 bilateral C6-7. There is abnormal signal within the spinal cord AP centered at C3-4 level may represent ischemic changes related to significant stenosis. Rosanna Ricci MD Objective Remarks GENERAL: Alert, and awake kneeling at side of bed, praying. able to get up and lay back in bed EYES: EOMI NECK: brace in place CARDIOVASCULAR: Regular rate and rhythm without murmurs. RESPIRATORY: Poor air entry. No appreciable wheezing. GASTROINTESTINAL: Abdomen soft, non-tender, nondistended. MUSCULOSKELETAL: able to squeeze my hand bilaterally. Psych: less emotional today but does get teary. Procedures C3-4, C4-5 anterior cervical discectomy A/P Problem List: (1) Cervical myelopathy ICD Code: G95.9 - Disease of spinal cord, unspecified Status: Acute (2) Chronic neck pain ICD Code: M54.2 - Cervicalgia; G89.29 - Other chronic pain Status: Acute Assessment and Plan Patient is a 62-year-old female with primary medical history of neck fusion, lower back fusion with rods, chronic pain who came in the hospital for increasing neck and back pain. Cervical myelopathy, Acute on chronic - worsening cervical pain, MRI showed cervical spinal stenosis. s/p C3-4, C4- 5 anterior cervical discectomy continue Pain management, rehab and anticoag per neurosx. think about it. - PT/OT - Neurology following and adjusting pain meds. - Continue Dexamethasone 4mg IV Q6hrs. u/s carotid showed no evidence of flow-limiting carotid stenosis however retrograde flow in the left vertebral art. likely indicative of the left subclavian art. stenosis or occlusion. There doesn't seem to be a big difference w BP when comparing both arms. check CTA to r/o subclavian stenosis Discharge Planning continue post op care. pain management per NS f/u CTA Dc per NS Abando,Delvis MD Dec 11, 2017 15:43
[2017-12-11] MEDS: oxyCODONE HCL 20 MG CONTROLLED RELEASE TAB PO SCH (18:19)
[2017-12-11] MEDS: CHLORHEXIDINE GLUCONATE 4% SOLN 120 ML BTL TOP SCH (21:00)
[2017-12-11] MEDS: AMITRIPTYLINE HCL 100 MG TAB PO PRN (23:32)
[2017-12-12 01:14] VITALS: BP 144/69; PULSE 72; RESP 18; TEMP 98.2; O2SAT 99
[2017-12-12] MEDS: ACETAMINOPHEN/HYDROcodone 325 MG/10 MG TAB PO PRN ×5 (01:17→22:26)
[2017-12-12] MEDS: DEXAMETHASONE SOD PHOS 4 MG/ML VIAL IV PUSH SCH ×4 (02:24→22:25)
[2017-12-12] MEDS: oxyCODONE HCL 20 MG CONTROLLED RELEASE TAB PO SCH ×3 (02:25→17:11)
[2017-12-12] MEDS: SODIUM CHLOR 0.9% 1000 ML INJ 1,000 ML IV SCH ×2 (03:29→13:02)
[2017-12-12] MEDS: HYDROmorphone HCL PF 2 MG/ML VIAL IV PRN ×5 (03:30→23:41)
[2017-12-12 05:25] VITALS: BP 126/58; PULSE 69; RESP 18; TEMP 97.6; O2SAT 100
[2017-12-12 08:00] VITALS: BP 138/76; PULSE 73; RESP 18; TEMP 98.2; O2SAT 99
--- NOTE | 2017-12-12 08:16 | HHI.PR ---
Subjective Remarks post op Objective Vital Signs Date Time Temp Pulse Resp B/P (MAP) Pulse Ox O2 Delivery O2 Flow Rate FiO2 12/12/17 05:25 97.6 69 18 126/58 (80) 100 12/12/17 04:21 18 12/12/17 03:36 18 12/12/17 02:25 18 12/12/17 01:14 98.2 72 18 144/69 (94) 99 12/11/17 23:37 18 144/80 (101) 99 12/11/17 20:40 97.9 94 18 170/90 (116) 99 12/11/17 19:54 94 20 170/90 (116) 12/11/17 16:33 98.1 76 20 178/93 (121) 99 12/11/17 12:17 98.1 73 20 151/80 (103) 99 I/O 12/11/17 12/11/17 12/11/17 12/12/17 12/12/17 12/12/17 07:00 15:00 23:00 07:00 15:00 23:00 Intake Total 2020 ml 700 ml Balance 2020 ml 700 ml Intake Oral 720 ml IV Total 1300 ml 700 ml # Voids 3 Result Diagram: 12/08/17 0715 12/08/17 0715 Objective Remarks lot of give way weak ue but appears to have near nl or nl tricep and finger ext bilat and ip and ta also has been up walking on own Assessment and Plan Assessment and Plan imp us neg mri brain nl labs ok ua pend i dw staff xanax for anxiety for c spine surgery 12/12/17 doing well post op will sign off she can fu my office 8 weeks us neg Cole Butts MD Dec 12, 2017 08:16
[2017-12-12] MEDS: DOCUSATE SODIUM 100 MG CAP PO SCH ×2 (08:43→22:25)
[2017-12-12] MEDS: PANTOPRAZOLE SOD 40 MG DELAYED RELEASE TAB PO SCH (08:43)
[2017-12-12] MEDS: SODIUM CHLORIDE 0.9% FLUSH 10 ML FLUSH IV FLUSH SCH ×2 (08:44→22:26)
[2017-12-12] MEDS: PANTOPRAZOLE SODIUM 40 MG VIAL IVP SCH (08:44)
--- NOTE | 2017-12-12 11:16 | HHI.NSPN ---
(Sapphire Sinha) Note Status Status: Progress Note (Sapphire Sinha) Interval History Interval History Ms. Rios is a 62 year old female who presents to [facility] for intractable cervical pain and extremity weakness. The patient reports she has had progressive neck pain for the past few months. She says she underwent an MRI scan of her cervical spine outpatient but she does not have results with her. She reports however for the past few days she has had severe worsening weakness of her arms and legs. This has caused difficulty mobilizing as well as performing ADLs. She reports of constipation but denies urinary or bowel incontinence. She complains pain radiating throughout her arms. She complains of headaches. She has numbness all over her arms and legs. She also has had weight loss. She denies fevers or chills. A neurosurgical evaluation was requested. She underwent C3-4, C4-5 anterior decompression with arthrodesis 12/09/1712/12: reports current pain regimen of oxycodone, lortab and Dilaudid not controlling her pain. she reports history of chronic opiate use for chronic pain, she follows up with a pain specialist. (Sapphire Sinha) Labs, Micro, & Vital Signs Results Date Time Temp Pulse Resp B/P (MAP) Pulse Ox O2 Delivery O2 Flow Rate FiO2 12/12/17 08:00 98.2 73 18 138/76 (96) 99 12/12/17 05:25 97.6 69 18 126/58 (80) 100 12/12/17 04:21 18 12/12/17 03:36 18 12/12/17 02:25 18 12/12/17 01:14 98.2 72 18 144/69 (94) 99 12/11/17 23:37 18 144/80 (101) 99 12/11/17 20:40 97.9 94 18 170/90 (116) 99 12/11/17 19:54 94 20 170/90 (116) 12/11/17 16:33 98.1 76 20 178/93 (121) 99 2/18/18 12:17 98.1 73 20 151/80 (103) 99 Constitutional Vital Signs Date Time Temp Pulse Resp B/P (MAP) Pulse Ox O2 Delivery O2 Flow Rate FiO2 12/12/17 08:00 98.2 73 18 138/76 (96) 99 12/12/17 05:25 97.6 69 18 126/58 (80) 100 12/12/17 04:21 18 12/12/17 03:36 18 12/12/17 02:25 18 12/12/17 01:14 98.2 72 18 144/69 (94) 99 12/11/17 23:37 18 144/80 (101) 99 12/11/17 20:40 97.9 94 18 170/90 (116) 99 12/11/17 19:54 94 20 170/90 (116) 12/11/17 16:33 98.1 76 20 178/93 (121) 99 12/11/17 12:17 98.1 73 20 151/80 (103) 99 (Sapphire Sinha) Physical Exam Ms. Rios is alert and awake. No acute distress. Motor strength is at least 4+/5 [place] J collar in place Wound with clean, dry primapore. (Sapphire Sinha) Medications Current Medications Current Medications Medications (Trade) Dose Ordered Sig/Suzie Route PRN Reason Start Time Stop Time Status Last Admin Dose Admin Methocarbamol (Robaxin) 500 mg QID PRN PO MUSCLE SPASM 12/07/17 19:00 12/10/17 11:53 Sodium Chloride (NS Flush) 2 ml UNSCH PRN IV FLUSH FLUSH AFTER USING IV ACCESS 12/07/17 19:00 Sodium Chloride (NS Flush) 2 ml BID IV FLUSH 12/07/17 21:00 12/12/17 08:44 Naloxone HCl (Narcan Inj) 0.4 mg UNSCH PRN IV PUSH SEE LABEL COMMENTS 12/07/17 19:00 Lactulose (Lactulose Liq) 30 ml DAILY PRN PO SEVERE CONSITIPATION 12/07/17 19:00 Amitriptyline HCl (Elavil) 300 mg HS PRN PO SLEEP 12/07/17 21:45 12/11/17 23:32 Dexamethasone Sodium Phosphate (Decadron Inj) 4 mg Q6H IV PUSH 12/08/17 14:00 12/12/17 08:44 Vancomycin HCl 1000 mg/Sodium Chloride 250 ml @ 250 mls/hr SECURITY GUARD IV 12/08/17 06:00 Sodium Chloride 1,000 ml @ 100 mls/hr Q10H IV 12/09/17 15:02 12/12/17 03:29 Bisacodyl (Dulcolax Supp) 10 mg DAILY PRN RECTAL CONSTIPATION 12/09/17 15:15 Docusate Sodium (Colace) 100 mg BID PO 12/09/17 21:00 12/12/17 08:43 Magnesium Hydroxide (Milk Of Magnesia Liq) 30 ml DAILY PRN PO CONSTIPATION 12/09/17 15:15 Pantoprazole Sodium (Protonix Inj) 40 mg DAILY IVP 12/10/17 09:00 Ondansetron HCl (Zofran Inj) 4 mg Q6H PRN IV NAUSEA OR VOMITING 12/09/17 15:15 12/09/17 16:49 Acetaminophen/ Hydrocodone Bitart ([place] 10-325 Mg) 1 tab Q4H PRN PO PAIN SCALE 1 TO 5 12/09/17 15:15 12/10/17 05:17 Acetaminophen/ Hydrocodone Bitart ([place] 10-325 Mg) 2 tab Q4H PRN PO PAIN SCALE 6 TO 10 12/09/17 15:15 12/12/17 06:04 Clonidine (Catapres) 0.1 mg Q6H PRN PO/NG SYS BP GREATER THAN 170 MMHG 12/09/17 15:15 Acetaminophen (Tylenol) 650 mg Q4H PRN PO TEMPERATURE > 101.5 F 12/09/17 15:15 Menthol ([place] Antonella) 1 lozenge UNSCH PRN BUCCAL SORE THROAT 12/09/17 15:15 12/10/17 05:20 Albuterol Sulfate (Albuterol Neb) 2.5 mg Q4HR NEB PRN INH WHEEZING 12/09/17 15:15 Dextrose (D50w (Vial) Inj) 50 ml UNSCH PRN IV PUSH HYPOGLYCEMIA-SEE COMMENTS 12/09/17 15:15 Glucagon (Glucagon Inj) 1 mg UNSCH PRN OTHER HYPOGLYCEMIA-SEE COMMENTS 12/09/17 15:15 Hydromorphone HCl (Dilaudid Pf Inj) 0.5 mg Q4H PRN IV BREAKTHROUGH PAIN 12/10/17 14:00 2/19/18 08:43 Pantoprazole Sodium (Protonix) 40 mg DAILY PO 12/12/17 09:00 12/12/17 08:43 Oxycodone HCl (OxyCONTIN CR) 60 mg Q8H PO 12/11/17 18:00 12/12/17 08:45 (Sapphire Sinha) Medical Decision Making MDM Remarks 62 y/o female s/p C3-4, C4-5 ACDF for severe stenosis, myelopathy history of chronic pain, chronic opiate use, opiate tolerance-follow up with pain specialist outpatient (Sapphire Sinha) Plan Plan Remarks cont [place] collar on, ok to remove with meals cont physical and occupational therapy ok to dc from NRS standpoint, recommend rehab vs HHC with PT/OT f/u in office in 1 week (Sapphire Sinha) Attending Statement The exam, history, and the medical decision-making described in the above note were completed with the assistance of the mid-level provider. I reviewed and agree with the findings presented. I attest that I had a [id number] encounter with the patient on the same day, and personally performed and documented my assessment and findings in the medical record. (Alex France MD) Sapphire Sinha Dec 12, 2017 11:16 Alex France MD Dec 16, 2017 15:40
[2017-12-12 12:00] VITALS: BP 132/68; PULSE 81; RESP 16; TEMP 97.6; O2SAT 100
--- NOTE | 2017-12-12 14:54 | HHI.PR ---
Subjective Remarks Follow-up cervical myelopathy and chronic pain. Patient counseled regarding narcotics. Continues to have neck and back pain and numbness of bilateral upper extremities. Discussed with nursing staff Objective Vitals Vital Signs Date Time Temp Pulse Resp B/P (MAP) Pulse Ox O2 Delivery O2 Flow Rate FiO2 12/12/17 12:00 97.6 81 16 132/68 (89) 100 12/12/17 08:00 98.2 73 18 138/76 (96) 99 12/12/17 05:25 97.6 69 18 126/58 (80) 100 12/12/17 04:21 18 12/12/17 03:36 18 12/12/17 02:25 18 12/12/17 01:14 98.2 72 18 144/69 (94) 99 12/11/17 23:37 18 144/80 (101) 99 12/11/17 20:40 97.9 94 18 170/90 (116) 99 12/11/17 19:54 94 20 170/90 (116) 12/11/17 16:33 98.1 76 20 178/93 (121) 99 I/O 12/11/17 12/11/17 12/11/17 12/12/17 12/12/17 12/12/17 07:00 15:00 23:00 07:00 15:00 23:00 Intake Total 2020 ml 700 ml Balance 2020 ml 700 ml Intake Oral 720 ml IV Total 1300 ml 700 ml # Voids 3 Result Diagram: 12/08/17 0715 12/08/17 0715 Imaging Last Impressions Neck CTA 12/11/17 1512 Signed Impressions: Service Date/Time: Tuesday, December 12, 2017 12:04 - CONCLUSION: 1. Focal critical stenosis of the left subclavian artery just beyond the origin. The subclavian artery is otherwise patent. Patient may benefit from endovascular intervention if sufficiently symptomatic. 2. Less than 20%% stenosis of the proximal left internal carotid artery secondary to eccentric noncalcified plaque. 3. No significant right carotid flow limiting stenosis. 4. Patent bilateral vertebral artery. 5. Small collection containing air adjacent to the right intrajugular vein likely due to recent central line attempt. Elder Riddle MD Cervical Spine X-Ray 12/09/17 0000 Signed Impressions: Service Date/Time: Saturday, December 09, 2017 13:22 - CONCLUSION: Anatomic alignment. Jama Ramirez MD FACR Carotid Artery Ultrasound 12/08/17 0811 Signed Impressions: Service Date/Time: November 09:50 - CONCLUSION: No evidence of flow-limiting carotid stenosis. Retrograde flow in the left vertebral artery likely indicative of left subclavian artery stenosis or occlusion. Further evaluation with CTA examination of the arch and carotids with attention to the subclavian arteries would be suggested. Ruslan See MD Chest X-Ray 12/08/17 0000 Signed Impressions: Service Date/Time: November 15:31 - CONCLUSION: 1. No acute cardiopulmonary disease. Elder Riddle MD Cervical Spine CT 12/08/17 0000 Signed Impressions: Service Date/Time: November 16:41 - CONCLUSION: Arthritic changes. No acute bony findings. Ruslan See MD Brain MRI 12/08/17 0000 Signed Impressions: Service Date/Time: November 15:44 - CONCLUSION: Normal examination. Ruslan See MD Cervical Spine MRI 12/07/17 0000 Signed Impressions: Service Date/Time: Thursday, December 07, 2017 17:17 - CONCLUSION: Moderate to severe thecal sac stenosis C3-4, C4-5 and C6-7 in addition to neural foramina compromise left C3-C4, bilateral C4-5 bilateral C6-7. There is abnormal signal within the spinal cord AP centered at C3-4 level may represent ischemic changes related to significant stenosis. Rosanna Ricci MD Objective Remarks GENERAL: Alert, and awake kneeling at side of bed, praying. able to get up and lay back in bed EYES: EOMI NECK: brace in place CARDIOVASCULAR: Regular rate and rhythm without murmurs. RESPIRATORY: Poor air entry. No appreciable wheezing. GASTROINTESTINAL: Abdomen soft, non-tender, nondistended. MUSCULOSKELETAL: able to squeeze my hand bilaterally. Procedures C3-4, C4-5 anterior cervical discectomy A/P Problem List: (1) Cervical myelopathy ICD Code: G95.9 - Disease of spinal cord, unspecified Status: Acute (2) Chronic neck pain ICD Code: M54.2 - Cervicalgia; G89.29 - Other chronic pain Status: Acute Assessment and Plan Patient is a 62-year-old female with primary medical history of neck fusion, lower back fusion with rods, chronic pain who came in the hospital for increasing neck and back pain. Cervical myelopathy, Acute on chronic - worsening cervical pain, MRI showed cervical spinal stenosis. s/p C3-4, C4- 5 anterior cervical discectomy continue Pain management, rehab and anticoag per neurosx. - PT/OT - Neurology following and adjusting pain meds. - Continue Dexamethasone 4mg IV Q6hrs. GI prophylaxis Chronic back pain. Continue pain management. Counseled regarding narcotics patient intolerant to Neurontin and Lyrica causing tachycardia subclavian stenosis. Interventional radiology consulted Discharge Planning Patient cleared for discharge by NS. Will discharge after IR evaluation. Patient to follow-up with pain management Osei Melgar MD Dec 12, 2017 14:54
--- NOTE | 2017-12-12 15:05 | RADRPT ---
EXAM DATE/TIME: 12/12/2017 12:04 [facility] COMPARISON: POC ULTRASOUND VASCULAR ACCESS TEAM, December 12, 2017, 9:35. INDICATIONS : Weakness and numbness in hands,abnormal ultrasond of carotids IV CONTRAST: 75 cc Omnipaque 350 (iohexol) IV RADIATION DOSE: 10.12 CTDIvol (mGy) MEDICAL HISTORY : Cervical myelopathy SURGICAL HISTORY : Cholecystectomy. ENCOUNTER: Initial ACUITY: 1 day PAIN SCALE: 10/10 LOCATION: CTA NECK Elevated flow velocities and ICA/CCA ratios have been found to correlate with increased degrees of vessel stenosis, calculated as percentage of diameter relative to a normal segment of distal ICA/CCA. TECHNIQUE: Volumetric scanning was performed using a multirow detector CT scanner. The data was post processed with a variety of visualization algorithms including full-volume maximum intensity projection, multip lanar sliding thin-slab reformation, curved-planar reformation, and surface-rendering techniques. Us ing automated exposure control and adjustment of the mA and/or kV according to patient size, radiatio n dose was kept as low as reasonably achievable to obtain optimal diagnostic quality images. DICOM f ormat image data is available electronically for review and comparison. FINDINGS: AORTIC ARCH: There is a three-vessel arch anatomy. There is critical focal stenosis of the left subclavian artery just beyond the origin. Left subclavian artery is otherwise intact. The remaining arch vessels are in tact at the origin. RIGHT CAROTID: The common carotid artery is intact. The carotid bulb has a normal configuration without ulceration o r narrowing. The internal carotid artery lumen is smooth without stenosis. The external carotid brendan ry is intact. LEFT CAROTID: The common carotid artery is intact. The carotid bulb has a normal configuration without ulceration or narrowing. Focal eccentric noncalcified plaque in the proximal left internal carotid artery with r esultant left and 20% stenosis. Intraparotid arteries otherwise patent to the skull base. Multiple ci rcumferential stenosis of the external carotid artery. VERTEBRALS: The vertebral arteries have a symmetric diameter. No stenotic lesions are seen. Nonvascular findings: Ill-defined collection containing air adjacent to the right internal jugular vein with the air extend ing caudally to the base of the neck posteriorly measuring up to 1.3 cm and cephalad anteriorly measu ring up to 1 cm. Centrilobular emphysema involving the visualized lung apices. Remaining soft tissues are unremarkable.. CONCLUSION: 1. Focal critical stenosis of the left subclavian artery just beyond the origin. The subclavian arter y is otherwise patent. Patient may benefit from endovascular intervention if sufficiently symptomatic . 2. Less than 20% stenosis of the proximal left internal carotid artery secondary to eccentric noncalc ified plaque. 3. No significant right carotid flow limiting stenosis. 4. Patent bilateral vertebral artery. 5. Small collection containing air adjacent to the right intrajugular vein likely due to recent centr al line attempt. Elder Riddle MD on December 12, 2017 at 14:55 Board Certified Radiologist. This report was verified electronically.
[2017-12-12] MEDS ORDERED: oxyCODONE SR PO (15:16)
[2017-12-12] MEDS ORDERED: DOCU1CAP39 PO (15:16)
[2017-12-12] MEDS ORDERED: HYDR-3583 PO (15:16)
--- NOTE | 2017-12-12 15:21 | HHI.DCPOC ---
Discharge Care Plan Diagnosis: (1) Cervical myelopathy Your Health Problems Are: Difficulty with ADL Exercise Tolerance Goals to Promote Your Health * To prevent worsening of your condition and complications * To maintain your health at the optimal level Directions to Meet Your Goals Take your medications as prescribed Follow your dietary instruction Follow activity as directed Keep your appointments as scheduled Take your immunizations and boosters as scheduled If your symptoms worsen call your PCP, if no PCP go to Urgent Care Center or Emergency Room Smoking is Dangerous to Your Health. Avoid second hand smoke Call the 24-hour hour crisis hotline for domestic abuse at Osei Mendosa MD Dec 12, 2017 15:21
[2017-12-12] MEDS ORDERED: IOHEXOL 350 MG/ML 10 ML VIAL (for RAD DIAG) IVCONTRAST ONE (16:48)
[2017-12-12 16:55] VITALS: BP 152/80; PULSE 74; RESP 18; TEMP 98.2; O2SAT 99
[2017-12-12 20:00] VITALS: BP 122/80; PULSE 71; RESP 18; TEMP 97.9; O2SAT 100
[2017-12-12] MEDS: AMITRIPTYLINE HCL 100 MG TAB PO PRN (22:26)
[2017-12-13] VITALS: BP 125/84; PULSE 72; RESP 20; TEMP 97.4; O2SAT 97
[2017-12-13] MEDS: oxyCODONE HCL 20 MG CONTROLLED RELEASE TAB PO SCH ×2 (02:41→09:25)
[2017-12-13] MEDS: DEXAMETHASONE SOD PHOS 4 MG/ML VIAL IV PUSH SCH ×3 (02:42→14:17)
[2017-12-13] MEDS: ACETAMINOPHEN/HYDROcodone 325 MG/10 MG TAB PO PRN ×3 (02:42→12:37)
[2017-12-13 04:00] VITALS: BP 135/69; PULSE 76; RESP 18; TEMP 98; O2SAT 96
[2017-12-13] MEDS: HYDROmorphone HCL PF 2 MG/ML VIAL IV PRN ×3 (05:00→14:17)
[2017-12-13] MEDS: DOCUSATE SODIUM 100 MG CAP PO SCH (08:01)
[2017-12-13] MEDS: PANTOPRAZOLE SOD 40 MG DELAYED RELEASE TAB PO SCH (08:02)
[2017-12-13] MEDS: SODIUM CHLORIDE 0.9% FLUSH 10 ML FLUSH IV FLUSH SCH (08:02)
[2017-12-13 08:50] VITALS: BP 142/88; PULSE 67; RESP 16; TEMP 98; O2SAT 100
[2017-12-13 12:00] VITALS: BP 138/76; PULSE 71; RESP 18; TEMP 98.4; O2SAT 100
--- NOTE | 2017-12-13 13:31 | HHI.DS ---
Discharge Summary Admission Date Dec 07, 2017 at 16:47 Discharge Date: Dec 13, 2017 Admitting Diagnosis cervical myelopathy with upper motor neuron signs (1) Cervical myelopathy ICD Code: G95.9 - Disease of spinal cord, unspecified Diagnosis: Principal Status: Acute (2) Chronic neck pain ICD Code: M54.2 - Cervicalgia; G89.29 - Other chronic pain Diagnosis: Principal Status: Acute Procedures C3-4, C4-5 anterior cervical discectomy Brief History - From Admission Written by Vivi Maciel, acting as scribe for Dr. Lee on 12/07/17 at 18:39. Patient is a 62-year-old female with primary medical history of neck fusion, lower back fusion with rods, chronic pain who came in the hospital for increasing neck and back pain. Patient reports that she has been having an ongoing cervical pain that extends throughout bilateral upper extremity with weakness for the past several days. She came into the hospital because he was worsening in pain and she is unable to hold any utensils, hairbrush or even to brush her teeth without crying in pain. Reports she's been dropping stuff on her foot she is unable to hold it and has broken to toes.. Complaints of numbness and tingling, sharp achy pain, rated 8/10, radiating to shoulders and head aggravated with movement increasing pain 10 over 10, unrelieved by her current regimen of medication. She also complains of difficulty with ambulation. Otherwise, denies chest pain, palpitations, fevers, chills, nausea , vomiting, diarrhea, constipation. Denies any shortness of breath or dyspnea. Imaging Last Impressions Neck CTA 12/11/17 1512 Signed Impressions: Service Date/Time: Tuesday, December 12, 2017 12:04 - CONCLUSION: 1. Focal critical stenosis of the left subclavian artery just beyond the origin. The subclavian artery is otherwise patent. Patient may benefit from endovascular intervention if sufficiently symptomatic. 2. Less than 20%% stenosis of the proximal left internal carotid artery secondary to eccentric noncalcified plaque. 3. No significant right carotid flow limiting stenosis. 4. Patent bilateral vertebral artery. 5. Small collection containing air adjacent to the right intrajugular vein likely due to recent central line attempt. Elder Riddle MD Cervical Spine X-Ray 12/09/17 0000 Signed Impressions: Service Date/Time: Saturday, December 09, 2017 13:22 - CONCLUSION: Anatomic alignment. Jama Ramirez MD FACR Carotid Artery Ultrasound 12/08/17 0811 Signed Impressions: Service Date/Time: November 09:50 - CONCLUSION: No evidence of flow-limiting carotid stenosis. Retrograde flow in the left vertebral artery likely indicative of left subclavian artery stenosis or occlusion. Further evaluation with CTA examination of the arch and carotids with attention to the subclavian arteries would be suggested. Ruslan See MD Chest X-Ray 12/08/17 0000 Signed Impressions: Service Date/Time: November 15:31 - CONCLUSION: 1. No acute cardiopulmonary disease. Elder Riddle MD Cervical Spine CT 12/08/17 0000 Signed Impressions: Service Date/Time: November 16:41 - CONCLUSION: Arthritic changes. No acute bony findings. Ruslan See MD Brain MRI 12/08/17 0000 Signed Impressions: Service Date/Time: November 15:44 - CONCLUSION: Normal examination. Ruslan See MD Cervical Spine MRI 12/07/17 0000 Signed Impressions: Service Date/Time: Thursday, December 07, 2017 17:17 - CONCLUSION: Moderate to severe thecal sac stenosis C3-4, C4-5 and C6-7 in addition to neural foramina compromise left C3-C4, bilateral C4-5 bilateral C6-7. There is abnormal signal within the spinal cord AP centered at C3-4 level may represent ischemic changes related to significant stenosis. Rosanna Ricci MD PE at Discharge GENERAL: Well-developed and well-nourished in no distress EYES: EOMI NECK: brace in place CARDIOVASCULAR: Regular rate and rhythm without murmurs. RESPIRATORY: Poor air entry. No appreciable wheezing. GASTROINTESTINAL: Abdomen soft, non-tender, nondistended. MUSCULOSKELETAL: able to squeeze my hand bilaterally. Hospital Course Patient is a 62-year-old female with primary medical history of neck fusion, lower back fusion with rods, chronic pain who came in the hospital for increasing neck and back pain. Cervical myelopathy, Acute on chronic - worsening cervical pain, MRI showed cervical spinal stenosis. s/p C3-4, C4- 5 anterior cervical discectomy continue Pain management, rehab and anticoag per neurosx. - PT/OT - Neurology following and adjusting pain meds. - Continue Dexamethasone 4mg IV Q6hrs in-house, discussed with neurosurgery no need to continue outpatient. GI prophylaxis Chronic back pain. Continue pain management. Counseled regarding narcotics patient intolerant to Neurontin and Lyrica causing tachycardia Subclavian stenosis. Patient asymptomatic discussed with interventional radiology, no intervention at this time. Outpatient follow-up Pt Condition on Discharge: Stable Discharge Disposition: Discharge Home Discharge Time: > 30 minutes Discharge Instructions DIET: Follow Instructions for: Heart Healthy Diet Activities you can perform: Regular-No Restrictions Activities to Avoid: Driving Follow up Referrals: Neurosurgery - 1 Week Pain Management - 2-3 Days PCP Follow-up - 1 Week New Medications: Docusate Sodium (Dok) 100 Mg Cap 100 MG PO BID for Prevent Constipation, #60 CAP Hydrocodone/Acetaminophen (Hydrocodone-Acetamin 10-325 mg) 10 Mg-325 Mg Tablet 1 TAB PO Q6H PRN for pain, #28 TAB [oxyCODONE SR] () 20 MG TABCR 20 MG PO Q8H for Pain Management, #21 TAB total 60 mg q 8h(use home med of 40 mg and 20 mg(new) Oxycontin) Continued Medications: Amitriptyline (Amitriptyline) 150 Mg Tab 300 MG PO HS PRN for SLEEP, #30 TAB 0 Refills Mruinucaqp-Zxwfwzwqbdnmv-Qkgztjks (Fioricet) 50-300-40 Mg Cap 2 CAP PO Q4H PRN for PAIN 1 TO 10 AND/OR AGITATION, CAP 0 Refills Methocarbamol (Robaxin) 500 Mg Tab 500 MG PO QID PRN for MUSCLE SPASM, #30 TAB 0 Refills Oxycodone ER (Oxycodone ER) 40 Mg Tab 40 MG PO Q8HR for Pain Management, TAB 0 Refills Discontinued Medications: Diclofenac Sodium (Voltaren-Xr) 100 Mg Tab.er.24h DAILY Osei Mendosa MD Dec 13, 2017 13:31
== END 2017-12-13 15:37 | disposition home or self-care (01) | DRG 473 ==
LOC: NEPD 12:14 → OBSVTOIN 16:47 → NEDA 16:47 → INTOOBSV 16:47 → N05A 20:52
PROVIDERS: ADMIT Internal Medicine; ATTEND Internal Medicine
PROC: 00NW0ZZ Release Cervical Spinal Cord, Open Approach (ICD-10-PCS; 2017-12-09)
PROC: 0RG207J Fusion of 2 or more Cervical Vertebral Joints with Autologous Tissue Substitute, Posterior Approach, Anterior Column, Open Approach (ICD-10-PCS; 2017-12-09)
PROC: 0RT30ZZ Resection of Cervical Vertebral Disc, Open Approach (ICD-10-PCS; 2017-12-09)
PROC: 0RG20AJ Fusion of 2 or more Cervical Vertebral Joints with Interbody Fusion Device, Posterior Approach, Anterior Column, Open Approach (ICD-10-PCS; principal; 2017-12-09 12:08)
DX: M50.01 Cervical disc disorder with myelopathy, high cervical region (principal); M48.02 Spinal stenosis, cervical region; G89.29 Other chronic pain; Z88.0 Allergy status to penicillin; Z98.1 Arthrodesis status; F17.210 Nicotine dependence, cigarettes, uncomplicated; K59.00 Constipation, unspecified; I70.8 Atherosclerosis of other arteries; F41.9 Anxiety disorder, unspecified; R63.4 Abnormal weight loss
CPT/HCPCS: 70498; 70553; 71046; 72040; 72125; 72156; 76000; 80048; 80053; 81001; 82550; 82607; 83921; 84425; 84439; 84443; 85025; 85610; 85652; 85730; 86038; 86140; 86430; 86592; 93005; 93880; 94150; A9579; C1713; J0690; J1100; J1170; J1580; J2060; J2250; J2270; J2360; J2370; J2405; J2710; J3010; J3370; J7030; J7040; J7050; L0150; L0172; Q9967